=== PATIENT | female | born 1985 | race Caucasian/White ===

== ENCOUNTER 2020-09-14 09:59 | Emergency (ER) | payer SELFPAY ==
--- OUTSIDE RECORDS SUMMARY | 2020-09-14 10:05 | XMS REPORT | Clinical Summary ---
:1985 Author Organization [facility] Address [address] [place] [address] Care Team Providers Name Role Phone Asked, No Pcp Primary Care Provider Unavailable Allergies No Known Active Allergies Medications Medication Sig Dispensed Refills Start Date End Date Status promethazine Take 0.5 tablets 12 tablet 0 08/08/2017 Active (PHENERGAN) 25 MG (12.5 mg total) by tablet mouth every 6 (six) hours as needed for nausea or vomiting for up to 12 doses. 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 Family History Medical History Relation Name Comments Cancer Father Diabetes Father Hypertension Father Diabetes Mother Relation Name Status Comments Father Mother Social History Tobacco Use Types Packs/Day Years Used Date Never Smoker Smokeless Tobacco: Never Used Alcohol Use Drinks/Week oz/Week Comments Not Currently social Sex Assigned at Date Recorded Not on file Last Filed Vital Signs Vital Sign Reading Time Taken Comments Blood Pressure 107/59 10/28/2019 1:00 PM FIELD [facility]ISER Pulse 71 10/28/2019 1:00 PM [facility] Temperature 36.7 C (98.1 F) 10/28/2019 1:00 PM FI[facility] AP[facility]AISER Respiratory Rate 16 10/28/2019 1:00 PM [facility]AIS[facility] Oxygen Saturation 97% 10/28/2019 1:00 PM FIELD AP[facility]AISER Inhaled Oxygen Concentration - - Weight - - Height 154.9 cm (5' 1") 10/28/2019 10:36 AM FIELD AP[facility]AIS[facility] Body Mass Index - - Plan of Treatment Health Maintenance Due Date Last Done Comments CERVICAL CANCER SCREENING 2005 INFLUENZA VACCINE 06/09/2020 Procedures Procedure Name Priority Date/Time Associated Comments Diagnosis SPLINT APPLICATION Routine 10/28/2019 1:15 PM Re sults for this FIELD APPRAISER procedure are i n the results section. XR ANKLE 3+ VW LEFT STAT 10/28/2019 11:57 AM R esults for this FIELD APPRAISER procedure are i n the results section. XR FOOT 3+ VW LEFT STAT 10/28/2019 11:22 AM Re sults for this FIELD APPRAISER procedure are i n the results section. after 09/14/2019 Results Splint Application (10/28/2019 1:15 PM FIELD APPRAISER) Narrative Performed At Hung Thorpe MD 10/29/2019 11:1 9 AM Splint Application Performed by: Yokasta Babb FNP Authorized by: Hung Thorpe MD Consent: Consent obtained: Verbal Consent given by: Patient Alternatives discussed: No treatmen t Pre-procedure details: Sensation: Normal Procedure details: Laterality: Left Location: Ankle Ankle: L ankle Splint type: Ankle stirrup Supplies: Elastic bandage Post-procedure details: Pain: Unchanged Sensation: Normal Patient tolerance of procedure: Thomas erated well, no immediate complications XR Ankle 3+ Vw Left (10/28/2019 11:57 AM FIELD APPRAISER) Specimen Narrative Performed At XR ANKLE 3 VW LEFT [facility] CLINICAL INDICATION: Ankle pain init ial exam COMPARISON: None. IMPRESSION: No fracture or dislocation the ankle is identified. Th e ankle mortise is maintained and symmetric. There is prominent soft tiss ue swelling superficial to the lateral malleolus as well as anteri bonny about the ankle. There is a chronic ossification n oted distal to the lateral malleolus tip, the finding uncha nged from foot radiographs of 05/27/2016 consistent with remote injury . A moderate plantar calcaneal spur is present. *[facility]-[id number] Procedure Note Hm Interface, Radiology Results Incoming - 10/28/2019 12:05 PM FIELD APPRAISER XR ANKLE 3 VW LEFT CLINICAL INDICATION: Ankle pain initia l exam COMPARISON: None. IMPRESSION: No fracture or dislocation the ankle is identified. The ankle mortise is maintained and symmetric. There is prominent soft tissue swelling superficial to the lateral malleolus as well as anteriorly about the ankle. There is a chronic ossification n oted distal to the lateral malleolus tip, the finding unchanged from foot radiographs of 05/27/2016 consistent with remote injury. A moderate plantar calcaneal spur is present. *[facility]-[id number] Performing Organization Address City/[facility]/ZIP Code Phon e Number [facility] [address] [place] [address] XR Foot 3+ Vw Left (10/28/2019 11:22 AM FIELD APPRAISER) Specimen Narrative Performed At XR FOOT 3 VW LEFT [facility] CLINICAL INDICATION: foot pain COMPARISON: None. IMPRESSION: No acute fracture of the foot is identified but there are healed deformities of the second and third metatarsal mid sha fts. Prominent soft tissue swelling is present over the dorsal midfoo t. A flexion deformity is noted involving the fourth digit. *[facility]-[id number] Procedure Note Hm Interface, Radiology Results Incoming - 10/28/2019 11:54 AM FIELD APPRAISER XR FOOT 3 VW LEFT CLINICAL INDICATION: foot pain COMPARISON: None. IMPRESSION: No acute fracture of the foot is identif ied but there are healed deformities of the second and third metatarsal mid shafts. Prominent soft tissue swelling is present over the dorsal midfoot. A flexion deformity is noted involving the fourth digit. 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
--- OUTSIDE RECORDS SUMMARY | 2020-09-14 10:06 | XMS REPORT | Continuity of Care Document ---
:1985 Author Organization [facility] t Address [address] [place] [address] Care Team Providers Name Role Phone Asked, Pcp Primary Care Physician Unavailable SHABBIR Attending Clinician Unavailable Leah Attending Clinician Yola Adan MD Attending Clinician Julio César Thorpe MD Attending Clinician Geovani Arreaga Attending Clinician Rian Archuleta Attending Clinician Problems Condition Condition Condition Status Onset Resolution Last Treating Co mments Source Name Details Category Date Date Treatment Clinician Date LEFT ANKLE Diagnosis Active 2018-112019-10-26 Memoria PAIN/SWELL 2-17 00:21:00 l ING LEFT 00:00: Turner ANKLE 00 PAIN/SWELL ING Active 10/25/2019 [facility] Cellulitis Cellulitis Disease Active [place] of right of right 704 Method i lower lower 00:00: st extremity extremity 00 DOG BITE Diagnosis Active 2019-05-10 M emoria 7- 02:58:00 l DOG BITE 00:00: Candelario n 00 Active 05/10/2019 [facility] Arthralgia Arthralgia Problem Active U nivers of left of left ity of ankle ankle [place] [facility] Charcot-Ma Problem Active 2020-01-12 M emoria pako-Tooth 01:07:51 l disease, [place] type IA Charcot-Ma (disorder) pako-Tooth disease, type IA (disorder) Active Problem 01/12/2020 [facility], [facility] Cecile Sprain of Problem Active 2020-01-12 Me moria ankle 01:07:51 l (disorder) Sprain Herm mathieu of ankle (disorder) Active Problem 01/12/2020 Medical Group,[facility] [place],[facility] OPID Cecile Sprain of Problem Active 2020-01-12 Me moria ankle 01:07:51 l grade III Sprain Saima nn (disorder) of ankle grade III (disorder) Active Problem 01/12/2020 Medical Group Anxiety Problem Active 2020-01-12 Derrick ihsan (finding) 01:07:51 l Anxiety [place] (finding) Active Problem 01/12/2020 Medical [facility] Sprain of Problem 2018-2019-10-28 2019-10-28 Memoria unspecifie 2-18 22:04:28 22:04:28 l d ligament Sprain 18:00: Herm mathieu of left of 00 ankle, unspecifie initial d ligament encounter of left ankle, initial encounter 10/26/2019 10/28/2019 [facility] [place] Bitten by Problem 2019-05-12 2019-05-12 Memoria dog, - 21:05:31 21:05:31 l initial Bitten 17:00: Turner encounter by dog, 00 initial encounter 05/10/2019 05/12/2019 [facility] Laceration Problem 2019-05-12 2019-05-12 Memoria without - 21:05:31 21:05:31 l foreign 17:00: [place] body, Laceration 00 unspecifie without d lower foreign leg, body, initial unspecifie encounter d lower leg, initial encounter 05/10/2019 05/12/2019 [facility] Contusion Problem 2019-05-12 2019-05-12 Memoria of - 21:05:31 21:05:31 l unspecifie 17:00: Candelario n d lower Contusion 00 leg, of initial unspecifie encounter d lower leg, initial encounter 05/10/2019 05/12/2019 [facility] Allergies, Adverse Reactions, Alerts This patient has no known allergies or adverse reactions. Family History Family Member Diagnosis Comments Start Date Stop Date Source Natural father Cancer [place] [facility] Natural father Diabetes [place] [facility] Natural father Hypertension [place] Natural mother Diabetes [facility] thodist Social History Social Habit Start Date Stop Date Quantity Comments Source Sex Assigned At [facility] ethodist Social History 2019-11-17 2019-11-17 [facility] Kimberly ermann 21:44:05 21:44:05 Tobacco use and 2019-05-12 2019-05-12 Never used Luis Maloney ethodist exposure 00:00:00 00:00:00 Alcohol intake 2019-05-12 2019-05-12 Ex-drinker Luis Iverson thodist 00:00:00 00:00:00 (finding) Alcohol Comment 2018-02-20 2018-02-20 social Luis Maloney ethodist 00:00:00 00:00:00 Smoking Status Start Date Stop Date Source Never smoker Luis tuttle Social History 2019-05-10 07:11:20 [facility] Medications Ordered Filled Start Stop Current Ordering Indication Dosage Frequency Signature Comments Components Source Medication Medication Date Date Medication? Clinician (SIG) Name Name traMADol traMADol Yes AKSHAT TAKE 1 [facility] HCl - 50 MG HCl - 50 MG 3-03 SHABBIR TABLET ity of Oral Tablet Oral Tablet 00:00: M.D. EVERY 4 TO 00 6 HOURS Physici NEEDED. ans {6 Yes See Memoria (Azithromyc 3-02 Instructio l in 250 MG 20:02: ns, Take 2 He rmann Oral Tablet 00 tablets by [Zithromax] mouth the ) } Pack first day [Z-PAKS] then 1 tablet by mouth days 2-5., X 5 day, # 6 tab, 0 Refill(s), Pharmacy: [id number] Codeine 2019-0 Yes 5 mL, PO, Memor ia Phosphate 2 3-02 Q6H, PRN l MG/ML / 19:51: cough, X 6 Herm mathieu Guaifenesin 00 day, # 120 20 MG/ML mL, 0 Oral Refill(s), Solution Pharmacy: [id number] 200 ACTUAT 2019-0 Yes 1-2 puff, Me moria Albuterol 3-02 INHALER, l 0.09 19:51: Q6H, PRN Turner MG/ACTUAT 00 wheezing, Metered coughing, Dose or Inhaler shortness [ProAir of breath, HFA] # 1 ea, 0 Refill(s), Pharmacy: [id number] Fluticasone 2020-0 Yes 1-2 spray, Memoria propionate 2-26 NASAL, l 0.05 16:10: Daily, PRN [place] MG/ACTUAT 00 Congestion Metered , in each Dose Nasal nostril, # [place] 16 gm, 0 [Flonase] Refill(s), Pharmacy: [facility] Theraflu 2020-0 Yes PO, Q6H, 0 Mem oria (pseudoephe 2-26 Refill(s) l drine) 15:31: Turner Daytime 00 Severe Cold traMADol traMADol Yes AKSHAT TAKE 1 Univers HCl - 50 MG HCl - 50 MG 2-07 SHABBIR TABLET ity of Oral Tablet Oral Tablet 00:00: M.D. EVERY 4 TO [place] 00 6 HOURS Physici NEEDED. ans tramadol Yes 50 mg = 1 Derrick ihsan hydrochlori 1-20 tab, PO, l de 50 MG 22:15: Q8H, PRN Saima nn Oral Tablet 00 Pain, X 10 day, # 30 tab, 0 Refill(s), Pharmacy: [facility] naproxen Yes 500 mg = 1 Mem oria 500 mg oral 1-09 tab, PO, l tablet 23:18: BID, PRN Turner 00 Pain, X 15 day, # 30 tab, 0 Refill(s), Pharmacy: [facility] Ibuprofen No 200 mg, Memor ia 1-09 PO, BID, l 21:41: Takes 4 at [place] 00 a time, 0 Refill(s) tramadol 2018-11 Yes 50 mg = 1 Derrick ihsan hydrochlori 2-18 tab, PO, l de 50 MG 07:52: Q6H, X 15 Herm mathieu Oral Tablet 00 day, # 18 [Ultram] tab, 0 Refill(s) Motrin 600 2018-11 No 600 mg = 1 M emoria mg oral 2-18 tab, PO, l tablet 07:51: Q6H, take Candelario n 00 with food, # 30 tab, 0 Refill(s) Morphine 2018-11 No Notes: Memoria 2-18 (Same l 05:48: as:MORPhin Turner 00 e Sulfate) Ondansetron 2018-11 No Notes: Derrick ihsan 2-18 (Same as: l 05:48: Zofran) [place] MEDICATION WASTE Product Size: 4 mg Product Wasted: ___ mg Amoxicillin Yes 875 mg = 1 Memoria 875 MG / 05-10 tab, PO, l Clavulanate 08:42: BID, X 10 H ermann 125 MG Oral 00 day, # 20 Tablet tab, 0 [Augmentin Refill(s) 875-mg] tramadol Yes 50 mg = 1 Derrick ihsan hydrochlori 02 tab, PO, l de 50 MG 08:42: Q6H, PRN Saima nn Oral Tablet 00 Pain, X 3 day, # 10 tab, 0 Refill(s) ibuprofen Yes 600 mg, Memor ia 600 mg oral 05-10 PO, Q8H, l tablet 08:42: PRN Pain, Candelario n 00 Take with food, X 3 day, # 10 tab, 0 Refill(s) Famotidine Yes 20 mg = 1 Me moria 20 MG Oral 05-10 tab, PO, l Tablet 08:42: BID, # 14 Candelario n [Pepcid] 00 tab, 0 Refill(s) BD Normal No Notes: Memori a Saline 05-10 (Same as: l Flush 07:11: BD Turner Posiflush) BD Normal No Notes: Memori a Saline 05-10 (Same as: l Flush 07:10: BD [place] 00 Posiflush) Amoxicillin No 875 mg, Mem oria 875 MG / 05-10 Route: PO, l Clavulanate 07:01: Drug Form: [place] 125 MG Oral 00 TAB, Tablet Dosing [Augmentin Weight 875-mg] 54.545, kg, ONCE, Start date: 05/10/19 2:01:00 CDT, Stop date: 05/10/19 2:01:00 CDT, 0 Ibuprofen No 600 mg, Memor ia 05-10 Route: PO, l 06:54: ONCE, [place] 00 Dosing Weight 54.545, kg, Priority: STAT, Start date: 05/10/19 1:54:00 CDT, Stop date: 05/10/19 1:54:00 CDT Famotidine 2019-0 No 1 tab, Memor ia 20 MG Oral 05-10 Route: PO, l Tablet 06:54: ONCE, [place] [Pepcid] 00 Dosing Weight 54.545, kg, Start date: 05/10/19 1:54:00 CDT, Stop date: 05/10/19 1:54:00 CDT acetaminoph 2019-0 No 1 tab, Derrick ihsan en-codeine 05-10 Route: PO, l #3 06:54: Dosing Turner 00 Weight 54.545, kg, ONCE, STAT, Start date: 05/10/19 1:54:00 CDT, Stop date: 05/10/19 1:54:00 CDT promethazin 2017-0 Yes 12.5mg Q6H Take 0.5 Smith e 9-30 tablets Methodi (PHENERGAN) 00:00: (12.[address] 25 MG 00 total) by tablet mouth every 6 (six) hours as needed for nausea or vomiting for up to 12 doses. Vital Signs Vital Name Observation Time Observation Value Comments Source Systolic (mm Hg) 2020-01-09 19:09:00 Derrick rial [place] Diastolic (mm Hg) 2020-01-09 19:09:00 Mem orial [place] Heart Rate 2020-01-09 19:09:00 [facility] Temperature Oral (F) 2020-01-09 19:09:00 98.8 F [facility] [place] Height 2020-01-09 19:09:00 154.94 cm [facility] Weight 2020-01-09 19:09:00 [facility] BMI Calculated 2020-01-09 19:09:00 Memori al [place] Systolic (mm Hg) 2020-01-04 15:21:00 Derrick rial [place] Diastolic (mm Hg) 2020-01-04 15:21:00 Mem orial [place] Heart Rate 2020-01-04 15:21:00 [facility] Temperature Oral (F) 2020-01-04 15:21:00 98.9 F [facility] Height 2020-01-04 15:21:00 154.94 cm [facility] Weight 2020-01-04 15:21:00 [facility] BMI Calculated 2020-01-04 15:21:00 Memori al [place] Systolic (mm Hg) 2019-11-17 21:26:00 Derrick rial [place] Diastolic (mm Hg) 2019-11-17 21:26:00 Mem orial [place] Heart Rate 2019-11-17 21:26:00 [facility] [place] Temperature Oral (F) 2019-11-17 21:26:00 98.4 F [facility] [place] Height 2019-11-17 21:26:00 154.94 cm [facility] [place] Weight 2019-11-17 21:26:00 [facility] [place] BMI Calculated 2019-11-17 21:26:00 Memori al [place] Systolic blood 2019-10-28 13:00:00 107 mm[Hg] [place] pressure Diastolic blood 2019-10-28 13:00:00 59 mm[Hg] [place] pressure Heart rate 2019-10-28 13:00:00 71 /min [place] Body temperature 2019-10-28 13:00:00 36.72 [place] Respiratory rate 2019-10-28 13:00:00 16 /min [place] Oxygen saturation in 2019-10-28 13:00:00 97 /min [place] [facility] Arterial blood by Pulse oximetry Body height 2019-10-28 10:36:00 154.9 cm [place] [facility] Temperature Oral (F) 2019-10-26 08:11:00 98.1 F [facility] [place] Heart Rate 2019-10-26 08:11:00 [facility] [place] Respitory Rate 2019-10-26 08:11:00 Memori al [place] Systolic (mm Hg) 2019-10-26 08:11:00 Derrick rial Turner Diastolic (mm Hg) 2019-10-26 08:11:00 Mem orial [place] Systolic (mm Hg) 2019-10-26 05:32:00 Derrick rial [place] Diastolic (mm Hg) 2019-10-26 05:32:00 Mem orial Turner Heart Rate 2019-10-26 05:32:00 [facility] [place] Respitory Rate 2019-10-26 05:32:00 Memori al [place] Temperature Oral (F) 2019-10-26 05:32:00 97.7 F [facility] [place] Height 2019-10-26 05:32:00 154.94 cm [facility] [place] BMI Calculated 2019-10-26 05:32:00 Memori al [place] Weight 2019-10-26 05:32:00 [facility] [place] Temperature Oral (F) 2019-05-10 08:58:00 97.9 F [facility] [place] Heart Rate 2019-05-10 08:58:00 [facility] [place] Respitory Rate 2019-05-10 08:58:00 Memori al [place] Systolic (mm Hg) 2019-05-10 08:58:00 Derrick rial [place] Diastolic (mm Hg) 2019-05-10 08:58:00 Mem orial [place] Temperature Oral (F) 2019-05-10 08:30:00 97.9 F [facility] [place] Heart Rate 2019-05-10 08:30:00 [facility] [place] Respitory Rate 2019-05-10 08:30:00 Memori al [place] Systolic (mm Hg) 2019-05-10 08:30:00 Derrick rial [place] Diastolic (mm Hg) 2019-05-10 08:30:00 Mem orial [place] Temperature Oral (F) 2019-05-10 07:32:00 97.8 F [facility] [place] Heart Rate 2019-05-10 07:32:00 [facility] [place] Respitory Rate 2019-05-10 07:32:00 Memori al [place] Systolic (mm Hg) 2019-05-10 07:32:00 Derrick rial [place] Diastolic (mm Hg) 2019-05-10 07:32:00 Mem orial [place] Weight 2019-05-10 06:38:00 [facility] Turner BMI Calculated 2019-05-10 06:38:00 Memori al [place] Height 2019-05-10 06:38:00 154.94 cm [facility] Procedures Procedure Date / Time Performing Clinician Source Performed Removal impacted cerumen 2020-01-09 19:55:00 Mem orial [place] using irrigation/lavage, unilateral [U] XRAY ANKLE MIN 3 VWS 2019-12-14 00:00:00 [facility] LEFT [id number] Physicians Strapping; ankle and/or 2019-11-17 21:30:00 Derrick rial Turner foot SPLINT APPLICATION 2019-10-28 13:15:00 Yokasta Babb Bahai XR ANKLE 3+ VW LEFT 2019-10-28 11:57:15 Yokasta Babb [place]ai XR FOOT 3+ VW LEFT 2019-10-28 11:22:54 Yokasta Babb Bahai Cholecystectomy 2012-11-08 06:00:00 [facility] Her rodarte Appendectomy 2008-11-08 06:00:00 [facility] Her rodarte Excision of fallopian tube 2008-11-08 06:00:00 [facility] [place] and surgical removal of ectopic Reconstruction of anterior 2007-04-09 05:00:00 M emoriheidy Cochran cruciate ligament of knee joint Periacetabular osteotomy 1999-11-08 06:00:00 Mem orial [place] of pelvic bone Plan of Care Planned Activity Planned Date Details Comments Source Future Scheduled 2020-06-09 INFLUENZA VACCINE [place] Test 00:00:00 [code = INFLUENZA VACCINE] Future Scheduled 2005 Screening for [place] [facility] Test 00:00:00 malignant neoplasm of cervix (procedure) [code = 369144364] Encounters Start End Encounter Admission Attending Care Care Encounter Source Date/Time Date/Time Type Type Clinicians Facility Department ID 2020-01-09 2020-01-09 Outpatient [facility] [id number] 13:15:00 23:59:59 04 2020-01-06 2020-01-06 JACINTA Dorman [facility] [id number] Univers 16:00:00 16:00:00 t; mary jane ODEN M.D. [place] Thomas ODEN M.D. ans 2020-01-04 2020-01-04 Outpatient [facility] [id number] 09:15:00 23:59:59 03 2020-01-04 2020-01-04 Outpatient [facility] [id number] 10:15:00 10:15:00 02 2019-12-21 2019-12-21 Outpatient [facility] [id number] 15:00:00 15:00:00 01 2019-12-16 2019-12-16 JACINTA Dorman [facility] 6 [id number] Univers 13:30:00 13:30:00 t; Henrry ODEN M.D. [place] Thomas ODEN M.D. ans 2019-11-29 2019-11-30 Outpatient [facility] [id number] 13:05:32 23:59:59 00 2019-11-28 2019-11-29 Outpatient [facility] [id number] 13:09:25 13:09:25 05 2019-11-26 2019-11-26 Outpatient [place], [id number]. [id number]. [id number] 15:26:00 23:59:00 Noor [id number] [id number] 2019-11-17 2019-11-17 Outpatient [facility] [id number] 15:30:00 23:59:59 00 2019-10-25 2019-10-26 Outpatient [place], [id number]. [id number]. [id number] 23:19:50 02:17:00 Pipo [id number] Geovani [id number] 5.120 2019-10-25 2019-10-25 Emergency E MHCY MHCY 7503 MHCY 23:19:00 23:19:00 2019-05-10 2019-05-10 Outpatient Kathe [id number] [id number]. [id number] 01:34:56 04:20:00 , Lui [id number] Rian [id number] 5.9 2019-05-10 2019-05-10 Emergency E [facility] MH[facility] [id number] Memoria 01:34:00 01:34:00 l [place] Martinez l Results Test Description Test Test Results Result Source Time Comments Comments Splint Hung Thorpe MD [place] Application 20 10/29/2019 11:[address] 13:15:00 AMSplint ApplicationPerformed by: Yokasta Babb FNPAuthorized by: Hung Thorpe MD Consent: Consent obtained: Verbal Consent given by: Patient Alternatives discussed: No treatmentPre-procedure details: Sensation: NormalProcedure details: Laterality: Left Location: Ankle Ankle: L ankle Splint type: Ankle stirrup Supplies: Elastic bandagePost-procedure details: Pain: Unchanged Sensation: Normal Patient tolerance of procedure: Tolerated well, no immediate complications XR Ankle 3+ Vw 2019-10[facility] Interface, Radiology [place] Left 20 Results Incoming - Method ist 12:02:13 10/28/2019 12:05 PM CSTXR ANKLE 3 VW LEFTCLINICAL INDICATION: Ankle pain initial examCOMPARISON: None.IMPRESSION:No fracture or dislocation the ankle is identified. The ankle mortise is maintained and symmetric. There is prominent soft tissue swelling superficial to the lateral malleolus as well as anteriorly about the ankle. There is a chronic ossification noted distal to the lateral malleolus tip, the finding unchanged from foot radiographs of 05/27/2016 consistent with remote injury. A moderate plantar calcaneal spur is present.*[id number] [id number] Foot 3+ Vw 2019-10- Interface, Radiology [place] Left 20 Results Incoming - Method ist 11:51:42 10/28/2019 11:54 AM CSTXR FOOT 3 VW LEFTCLINICAL INDICATION: foot painCOMPARISON: None.IMPRESSION:No acute fracture of the foot is identified but there are healed deformities of the second and third metatarsal mid shafts. Prominent soft tissue swelling is present over the dorsal midfoot. A flexion deformity is noted involving the fourth digit.*[id number]
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
[2020-09-14] MEDS ORDERED: HYDROCODONE/APAP 10/325 TAB ONE (10:46)
--- NOTE | 2020-09-14 11:17 | RAD REPORT ---
EXAM DESCRIPTION: RAD - Knee Left 3 View - 09/14/2020 11:11 am CLINICAL HISTORY: knee pain Left knee pain and swelling COMPARISON: No comparisons FINDINGS: Mild medial compartment space arthritic changes are present. A small suprapatellar joint e ffusion. No fracture or dislocation.
--- NOTE | 2020-09-14 11:47 | ER ---
Nurse's Notes [facility] Name: Gissell White Age: 34 yrs Sex: Female : 1985 Arrival Date: 09/14/2020 Time: 10:03 Bed 7 Private MD: Diagnosis: Unspecified dislocation of left patella Presentation: 09/14 10:15 Chief complaint: Left knee gave out while standing in kitchen this morning, c/o left hb knee pain 05/18. Coronavirus screen: At this time, the client does not indicate any symptoms associated with coronavirus-19. Ebola Screen: No symptoms or risks identified at this time. Initial Sepsis Screen: Does the patient meet any 2 criteria? No. Patient's initial sepsis screen is negative. Does the patient have a suspected source of infection? No. Patient's initial sepsis screen is negative. Risk Assessment: Do you want to hurt yourself or someone else? Patient reports no desire to harm self or others. Onset of symptoms was September 14, 2020. 10:15 Method Of Arrival: Carried 10:15 Acuity: JOCELYNE 4 hb Triage Assessment: 10:16 General: Appears in no apparent distress. uncomfortable, Behavior is calm, cooperative. hb Pain: Pain currently is 7 out of 10 on a pain scale. EENT: No signs and/or symptoms were reported regarding the EENT system. Neuro: Level of Consciousness is awake, alert, obeys commands, Oriented to person, place, time, situation. Cardiovascular: Capillary refill < 3 seconds Patient's skin is warm and dry. Respiratory: Respiratory effort is even, unlabored, Respiratory pattern is regular, symmetrical. GI: No signs and/or symptoms were reported involving the gastrointestinal system. : No signs and/or symptoms were reported regarding the genitourinary system. Derm: Skin is pink, warm \T\ dry. Musculoskeletal: mild swelling noted to left knee. Historical: - Allergies: 10:16 No Known Allergies; hb - Immunization history:: Adult Immunizations up to date. - Social history:: Smoking status: Patient denies any tobacco usage or history of. Screenin:17 Abuse screen: Denies threats or abuse. Denies injuries from another. Nutritional hb screening: No deficits noted. Tuberculosis screening: No symptoms or risk factors identified. Fall Risk None identified. Assessment: 10:17 General: see triage. hb 11:00 Reassessment: Patient appears in no apparent distress at this time. Patient and/or hb family updated on plan of care and expected duration. Pain level reassessed. Patient is alert, oriented x 3, equal unlabored respirations, skin warm/dry/pink. 11:45 Reassessment: Patient appears in no apparent distress at this time. Patient and/or hb family updated on plan of care and expected duration. Pain level reassessed. Patient is alert, oriented x 3, equal unlabored respirations, skin warm/dry/pink. Vital Signs: 10:15 BP 102 / 77; Pulse 79; Resp 16; Temp 98.1(O); Pulse Ox 98% ; Pain 7/10; hb 11:30 BP 112 / 78; Pulse 78; Resp 16; Pulse Ox 99% on R/A; hb ED Course: 10:03 Patient arrived in ED. mr 10:08 Yohannes Melchor PA is PHCP. [facility] 10:08 Thuan Mendoza MD is Attending Physician. [facility] 10:16 Triage completed. hb 10:16 Janki Churchill, RN is Primary Nurse. hb 10:16 Arm band placed on. hb 10:17 Patient has correct armband on for positive identification. Call light in reach. Side hb rails up X 1. 11:11 Knee Left 3 View XRAY In Process Unspecified. EDMS 11:44 Ben Patrick MD is Referral Physician. [facility] 11:56 No provider procedures requiring assistance completed. Patient did not have IV access hb during this emergency room visit. 11:57 Knee immobilizer applied on left knee. dh3 Administered Medications: 10:38 Drug: Flora 10 mg-325 mg 1 tabs Route: PO; hb 11:35 Follow up: Response: No adverse reaction hb Outcome: 11:46 Discharge ordered by MD. m 11:56 Discharged to home with family. hb 11:56 Condition: stable 11:56 Discharge instructions given to patient, Instructed on discharge instructions, follow up and referral plans. Demonstrated understanding of instructions, follow-up care, medications, Prescriptions given X 1. 12:00 Patient left the ED. hb Signatures: Dispatcher [employer] EDMS Yohannes Melchor PA PA Apryl Reinoso mr Janki Churchill, RN RN hb Rain, Magalys dh3
--- NOTE | 2020-09-14 11:48 | EDPHYS ---
Physician Documentation [facility] Name: Gissell White Age: 34 yrs Sex: Female : 1985 Arrival Date: 09/14/2020 Time: 10:03 Bed 7 Private MD: ED Physician Thuan Mendoza HPI: 09/14 10:21 This 34 yrs old Female presents to ER via Carried with complaints of Knee jmm Pain. 10:21 The patient presents with an injury, pain. Onset: The symptoms/episode began/occurred jmm acutely, just prior to arrival. Modifying factors: The symptoms are alleviated by nothing. the symptoms are aggravated by movement, weight bearing, bending knee. This is a 34 year old female with a history of Akxfify-Laquj-Qgraj that presents to the ED with spontaneous dislocation of the left patella while the patient was standing. Patient states she collapsed immediately. Patient states she had a similar episode 1 month prior. Denies other injury. . Historical: - Allergies: 10:16 No Known Allergies; hb - Immunization history:: Adult Immunizations up to date. - Social history:: Smoking status: Patient denies any tobacco usage or history of. ROS: 10:21 Constitutional: Negative for fever, chills, and weight loss, Cardiovascular: Negative jmm for chest pain, palpitations, and edema, Respiratory: Negative for shortness of breath, cough, wheezing, and pleuritic chest pain. 10:21 MS/extremity: Positive for pain. 10:21 All other systems are negative. Exam: 10:21 Constitutional: This is a well developed, well nourished patient who is awake, alert, jmm and in no acute distress. Head/Face: atraumatic. Eyes: EOMI, no conjunctival erythema appreciated ENT: Moist Mucus Membranes Neck: Trachea midline, Supple Chest/axilla: Normal chest wall appearance and motion. Cardiovascular: Regular rate and rhythm. No edema appreciated Respiratory: Normal respirations, no respiratory distress appreciated Abdomen/GI: Non distended, soft Back: Normal ROM Skin: General appearance color normal 10:21 Musculoskeletal/extremity: left patella is TTP, no tibial or femoral ttp, full dorsalis pulse appreciated, compartments are soft, NVI. 10:21 Skin: Appearance: Color: normal in color. 10:21 Neuro: Orientation: is normal, Mentation: is normal, Memory: is normal. 10:21 Psych: Behavior/mood is pleasant, cooperative. Vital Signs: 10:15 BP 102 / 77; Pulse 79; Resp 16; Temp 98.1(O); Pulse Ox 98% ; Pain 7/10; hb 11:30 BP 112 / 78; Pulse 78; Resp 16; Pulse Ox 99% on R/A; hb MDM: 10:21 Patient medically screened. [facility] 11:42 Data reviewed: vital signs, nurses notes. Counseling: I had a detailed discussion with [facility] the patient and/or guardian regarding: the historical points, exam findings, and any diagnostic results supporting the discharge/admit diagnosis, the need for outpatient follow up, to return to the emergency department if symptoms worsen or persist or if there are any questions or concerns that arise at home. ED course: Xray negative for fracture. Most likely patellar dislocation. I do not suspect knee dislocation/vascular involvement. Low likelihood based on mechanism. Patient is advised to follow up with ortho for reevaluation and otherwise given strict return precautions. Patient understood and agrees with the plan of care. . 09/14 10:24 Order name: Knee Left 3 View XRAY; Complete Time: 11:23 [facility] 09/14 11:23 Order name: Knee Immobilizer; Complete Time: 11:56 [facility] Administered Medications: 10:38 Drug: [place] 10 mg-325 mg 1 tabs Route: PO; hb 11:35 Follow up: Response: No adverse reaction hb Disposition: 09/14/20 11:46 Discharged to Home. Impression: Unspecified dislocation of left patella. - Condition is Stable. - Discharge Instructions: Patellar Dislocation. - Prescriptions for Ultracet 37.5- 325 mg Oral Tablet - take 1 tablet by ORAL route every 6 hours - for up to 5 days; do not exceed 8 tablets per day.; 20 tablet. - Medication Reconciliation Form, Thank You Letter, Antibiotic Education, Prescription Opioid Use form. - Follow up: Ben Patrick MD; When: 2 - 3 days; Reason: Recheck today's complaints, Continuance of care, Re-evaluation by your physician. Addendum: 09/16/2020 18:41 Co-signature as Attending Physician, Thuan Mendoza MD I agree with the assessment and k plan of care. Signatures: Dispatcher MedThuan Alejo MD MD kdr Mickail, Joel, PA PA Janki Cueva, RN RN Corrections: (The following items were deleted from the chart) 09/14 12:00 11:46 09/14/2020 11:46 Discharged to Home. Impression: Unspecified dislocation of left hb patella. Condition is Stable. Forms are Medication Reconciliation Form, Thank You Letter, Antibiotic Education, Prescription Opioid Use. Follow up: Ben Patrick; When: 2 - 3 days; Reason: Recheck today's complaints, Continuance of care, Re-evaluation by your physician. adela
[2020-09-14 12:05] VITALS: TEMP 98.1
[2020-09-14 12:06] VITALS: BP 112/78; O2SAT 99
== END 2020-09-14 12:00 | disposition home or self-care (01) ==
LOC: ER 09:59
DX: S83.005A Unspecified dislocation of left patella, initial encounter (principal)
CPT/HCPCS: 99284

== ENCOUNTER 2021-07-12 14:25 | Emergency (ER) | payer OTHER, SELFPAY ==
--- OUTSIDE RECORDS SUMMARY | 2021-07-12 14:31 | XMS REPORT | Continuity of Care Document ---
:1985 Author Organization [facility] t Address [address] [place] [address] Care Team Providers Name Role Phone Pcp, Does Not Have A Primary Care Physician MILADIS Attending Clinician Unavailable Ben PARDO Attending Clinician Doctor Unassigned, Name Attending Clinician Unavailable Ultrasound Attending Clinician Unavailable Kavya PARDO, Ori Attending Clinician Skip RN, S Attending Clinician Unavailable Danish PARDO Attending Clinician 2, Lab Attending Clinician Unavailable Pob, Lab Main Attending Clinician Unavailable Karina HDEZ, M Attending Clinician Unavailable Oswald Ibarra DO Attending Clinician Erick HDEZ, T Attending Clinician Unavailable SHABBIR Attending Clinician Unavailable Leah Attending Clinician Geovani Arreaga Attending Clinician Rian Archuleta Attending Clinician Payers Payer Name Policy Type Policy Number Effective Date Expiration Date Lin shook [facility] MEDICAID STAR [id number] 2020 00:00:00 Problems Condition Condition Condition Status Onset Resolution Last Treating Co mments Source Name Details Category Date Date Treatment Clinician Date COVID-19 COVID-19 Disease Active Unive rs affecting affecting 07-11 [place]y [place] , , [place] antepartum antepartum 00 Me dical Branch Supervisio Supervisio Disease Active U nivers n of n of 9-02 ity of elderly elderly 00:00: [place] multigravi multigravi 00 Me dical da in da in Branch third third trimester trimester Obesity Obesity Disease Active Univers (BMI (BMI 8-18 ity of 30-39.9) 30-39.9) 00:00: [place] 00 Medical Branch Insulin Insulin Disease Active Univers controlled controlled 8-05 it y of gestationa gestationa 00:[place] l diabetes l diabetes 00 Me dical mellitus mellitus Branch (GDM) (GDM) during during , , antepartum antepartum Anxiety Anxiety Disease Active Univers 7-20 ity of 00:00: [place] Medical Branch Anemia of Anemia of Disease Active Uni vers mother in mother in 7-05 ity of , , 00:[place] antepartum antepartum 00 Me dical Branch 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 00:00: [place] te te 00 Medical 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 Chronic Chronic Disease Active Univers pain of pain of 4-26 ity of both knees both knees 00:00: [place] 00 [place] Vulvar Vulvar Disease Active Univers lesion lesion 4-09 ity of 00:00: [place] 00 Medical Branch Vaginal Vaginal Disease Active Univers discharge discharge 4-09 ity of during during 00:00: [place] 00 Medi luis miguel in second in second Bran ch trimester trimester Non-intrac Non-intrac Disease Active U nivers table table 3-12 ity of vomiting vomiting 00:00: [place] with with 00 Medical nausea nausea Branch 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-11 ity of disease disease 00:00: [place] type 1A type 1A 00 Medical Branch Depression Depression Disease Active U nivers affecting affecting 2-11 it[place] of [place] in third in third 00 Medica l trimester, trimester, Br anch antepartum antepartum Supervisio Supervisio Disease Active U nivers n of n of 2-11 ity of high-risk high-risk 00:[place] Med[place] luis miguel of elderly of elderly Br anch multigravi multigravi da da LEFT ANKLE Diagnosis Active [id number] Memoria PAIN/SWELL 12-26 00:21:00 l ING LEFT 00:00: [place] ANKLE 00 PAIN/SWELL ING Active 10/25/2019 [facility] Cellulitis Cellulitis Disease Active M ethodi of right of right [address] [facility] lower lower 00:00: [facility] extremity extremity 00 l DOG BITE Diagnosis Active 2019-05-10 M emoria 05-10 02:58:00 l DOG BITE 00:00: [place] 00 Active 05/10/2019 [facility] Chlamydia Chlamydia Disease Active 2017-11 Uni vers trachomati trachomati 0-26 it y of s s 00:00: [place] infection infection 00 Medi luis miguel of lower of lower Branch genitourin genitourin elvira sites elvira sites Sprain of Problem Active 2020-01-12 Me moria ankle 01:07:51 l (disorder) Sprain Herm mathieu of ankle (disorder) Active Problem 01/12/2020 [facility] H OPID Cecile Sprain of Problem Active 2020-01-12 Me mor[place] ankle 01:07:51 l grade III Sprain Saima nn (disorder) of ankle grade III (disorder) Active Problem 01/12/2020 [facility] Arthralgia Arthralgia Problem Active U nivers of left of left ity of ankle ankle [place] [facility]ici ans History of Past Illness Condition Condition Condition Status Onset Resolution Last Treating Co mments Source Name Details Category Date Date Treatment Clinician Date Sprain of Problem [id number] 2019-10-28 Memoria unspecifie 2-18 22:04:28 22:04:28 l d ligament Sprain 18:00: Herm mathieu of left of 00 ankle, unspecifie initial d ligament encounter of left ankle, initial encounter 10/26/2019 10/28/2019 [facility] Bitten by Problem 2019-05-12 2019-05-12 Memoria dog, 05-10 21:05:31 21:05:31 l initial Bitten 17:00: [place] encounter by dog, 00 initial encounter 05/10/2019 05/12/2019 [facility] Laceration Problem 2018-2019-05-12 2019-05-12 Memoria without 05-10 21:05:31 21:05:31 l foreign 17:00: [place] body, Laceration 00 unspecifie without d lower foreign leg, body, initial unspecifie encounter d lower leg, initial encounter 05/10/2019 05/12/2019 [facility] Contusion Problem 2018-2019-05-12 2019-05-12 Memoria of 05-10 21:05:31 21:05:31 l unspecifie 17:00: [place] d lower Contusion 00 leg, of initial unspecifie encounter d lower leg, initial encounter 05/10/2019 05/12/2019 [facility] Allergies, Adverse Reactions, Alerts This patient has no known allergies or adverse reactions. Family History Family Member Diagnosis Comments Start Date Stop Date Source Natural father Cancer [facility] [place] [facility] father Diabetes [facility] Natural father Hypertension [facility] Natural mother Diabetes [facility] Social History Social Habit Start Date Stop Date Quantity Comments Source ASSERTION 2020-11-08 University of 00:00:00 [place] [facility] Exposure to Yes University of SARS-CoV-2 [place] [facility] (event) Branch Social History 2019-11-17 2019-11-17 Darleen turner 21:44:05 21:44:05 Tobacco use and 2019-05-12 2019-05-12 Never used [facility] exposure 00:00:00 00:00:00 Alcohol intake 2019-05-12 2019-05-12 Ex-drinker [facility] 00:00:00 00:00:00 (finding) Alcohol Comment 2018-02-20 2018-02-20 [facility] 00:00:00 00:00:00 [birth year] [facility] 00:00:00 00:00:00 Smoking Status Start Date Stop Date Source Social History 2019-10-26 06:02:21 [facility] Her rodarte Never smoker [facility] Medications Ordered Filled Start Stop Current Ordering Indication Dosage Frequency Signature Comments Components Source Medication Medication Date Date Medication? Clinician (SIG) Name Name psyllium Yes Take by Salvador mcmahan 8 mouth. ity of (METAMUCIL 21:00: [place] ORAL) 11 Medical Branch Yes Take by Unive rs vit 8-28 mouth. ity of 75/iron/fol 21:00: [place] ic/om3 (ONE 11 Medical A DAY [place] [facility] ORAL) psyllium Yes Take by Unive rs husk 8-28 mouth. ity of (METAMUCIL 21:00: [place] ORAL) 11 Medical Branch acetaminoph Yes Take by Un waldo en 8-28 mouth. ity of (TYLENOL) 21:00: [place] 325 mg Cap 11 Medical Branch Yes Take by Unive rs vit 8-28 mouth. ity of 75/iron/fol 21:00: [place] ic/om3 (ONE 11 Medical A DAY [place] [facility]OM[facility] D[facility] ORAL) psyllium Yes Take by Unive rs husk 8-28 mouth. ity of (METAMUCIL 21:00: [place] ORAL) 11 Medical Branch acetaminoph Yes Take by Un waldo en 8- mouth. ity of (TYLENOL) 21:00: [place] 325 mg Cap 11 Medical Branch Yes Take by Unive rs vit 8-28 mouth. ity of 75/iron/fol 21:00: [place] ic/om3 (ONE 11 Medical A DAY [place] [facility]OM[facility] D[facility] ORAL) psyllium Yes Take by Unive rs husk 8-28 mouth. ity of (METAMUCIL 21:00: [place] ORAL) 11 Medical Branch acetaminoph Yes Take by Un waldo en 8-28 mouth. ity of (TYLENOL) 21:00: [place] 325 mg Cap 11 Medical Branch Yes Take by Unive rs vit 8-28 mouth. ity of 75/iron/fol 21:00: [place] ic/om3 (ONE 11 Medical A DAY [place] [facility]OM[facility] D[facility] ORAL) psyllium Yes Take by Unive rs husk 8-28 mouth. ity of (METAMUCIL 21:00: [place] ORAL) 11 Medical Branch acetaminoph Yes Take by Un waldo en 8-28 mouth. ity of (TYLENOL) 21:00: [place] 325 mg Cap 11 Medical Branch Yes Take by Unive rs vit 8-28 mouth. ity of 75/iron/fol 21:00: [place] ic/om3 (ONE 11 Medical A DAY Branch WOMEN'S D[facility] ORAL) albuterol Yes [id number] 2{puff} Inhale 2 Univers 90 8-28 Puffs ity of mcg/actuati 00:00: every 6 [place] as on inhaler 00 (six) Medical hours as Branch needed for Wheezing or Shortness of Breath. albuterol Yes [id number] 2{puff} Inhale 2 Univers 90 8-28 Puffs ity of mcg/actuati 00:00: every 6 [place] as on inhaler 00 (six) Medical hours as Branch needed for Wheezing or Shortness of Breath. albuterol Yes [id number] 2{puff} Inhale 2 Univers 90 8-28 Puffs ity of mcg/actuati 00:00: every 6 [place] as on inhaler 00 (six) Medical hours as Branch needed for Wheezing or Shortness of Breath. albuterol Yes [id number] 2{puff} Inhale 2 Univers 90 8-28 Puffs ity of mcg/actuati 00:00: every 6 [place] as on inhaler 00 (six) Medical hours as Branch needed for Wheezing or Shortness of Breath. insulin NPH Yes [id number] 12U inject 12 Univers (HUMULIN N 8-04 Units ity of NPH U-100 00:00: under the [place] as INSULIN) 00 skin every Medic al 100 unit/mL morning Branc h injection and evening. insulin NPH Yes [id number] 12U inject 12 Univers (HUMULIN N 8-04 Units ity of NPH U-100 00:00: under the [place] as INSULIN) 00 skin every Medic al 100 unit/mL morning Branc h injection and evening. insulin NPH Yes [id number] 12U inject 12 Univers (HUMULIN N 8-04 Units ity of NPH U-100 00:00: under the [place] as INSULIN) 00 skin every Medic al 100 unit/mL morning Branc h injection and evening. insulin NPH Yes [id number] 12U inject 12 Univers (HUMULIN N 8-04 Units ity of NPH U-100 00:00: under the [place] as INSULIN) 00 skin every Medic al 100 unit/mL morning Branc h injection and evening. insulin NPH 0 Yes [id number] 12U inject 12 Univers (HUMULIN N 8-04 Units ity of NPH U-100 00:00: under the [place] as INSULIN) 00 skin every Medic al 100 unit/mL morning Branc h injection and evening. Blood-Gluco Yes Use as Univ ers se Meter 7 directed ity of (FREESTYLE 00:00: [place] LITE METER) 00 Medical Kit Branch blood sugar Yes Pt to Unive rs diagnostic 06-03 check ity of (FREESTYLE 00:00: blood [place] LITE 00 glucose Medical STRIPS) levels 4 x Branch strip per day Lancets Yes Use as Univers Misc 7 directed ity of 00:00: [place] 00 Medical Branch Blood-Gluco Yes Use as Univ ers se Meter 06-03 directed ity of (FREESTYLE 00:00: [place] LITE METER) 00 Medical Kit Branch blood sugar Yes Pt to Unive rs diagnostic 06-03 check ity of (FREESTYLE 00:00: blood [place] LITE 00 glucose Medical STRIPS) levels 4 x Branch strip per day Lancets Yes Use as Univers Misc 06-03 directed ity of 00:00: [place] 00 Medical Branch Blood-Gluco Yes Use as Univ ers se Meter 06-03 directed ity of (FREESTYLE 00:00: [place] LITE METER) 00 Medical Kit Branch blood sugar Yes Pt to Unive rs diagnostic 06-03 check ity of (FREESTYLE 00:00: blood [place] LITE 00 glucose Medical STRIPS) levels 4 x Branch strip per day Lancets 0 Yes Use as Univers Misc 7 directed ity of 00:00: [place] 00 Medical Branch Blood-Gluco Yes Use as Univ ers se Meter 06-03 directed ity of (FREESTYLE 00:00: [place] LITE METER) 00 Medical Kit Branch blood sugar Yes Pt to Unive rs diagnostic 06-03 check ity of (FREESTYLE 00:00: blood [place] LITE 00 glucose Medical STRIPS) levels 4 x Branch strip per day Lancets Yes Use as Univers Misc 7 directed ity of 00:00: [place] 00 Medical Branch Blood-Gluco Yes Use as [facility] ers se Meter 06-03 directed ity of (FREESTYLE 00:00: [place] LITE METER) 00 Medical Kit Branch blood sugar Yes Pt to [facility] rs diagnostic 06-03 check ity of (FREESTYLE 00:00: blood [place] LITE 00 glucose Medical STRIPS) levels 4 x Branch strip per day Lancets Yes Use as [facility] Misc 06-03 directed ity of 00:00: [place] 00 Medical Branch ferrous Yes [id number] 325mg Take 1 Un waldo sulfate 6-28 tablet by ity of (IRON, 00:00: mouth [place] FERROUS 00 daily. Medical SULFATE,) Branch 325 mg (65 mg iron) tablet ascorbic Yes [id number] 500mg Take 1 U nivers acid, 6-28 tablet by ity of vitamin C, 00:00: mouth [place] 500 mg 00 daily. Medical tablet Branch docusate Yes [id number] 100mg Take 1 U nivers (COLACE) 6-28 capsule by ity o f 100 mg 00:00: mouth 2 [place] capsule 00 (two) Medical times Branch daily as needed for Constipati on. ferrous Yes [id number] 325mg Take 1 Un waldo sulfate 6-28 tablet by ity of (IRON, 00:00: mouth [place] FERROUS 00 daily. Medical SULFATE,) Branch 325 mg (65 mg iron) tablet ascorbic Yes [id number] 500mg Take 1 U nivers acid, 6-28 tablet by ity of vitamin C, 00:00: mouth [place] 500 mg 00 daily. Medical tablet Branch docusate Yes [id number] 100mg Take 1 U nivers (COLACE) 6-28 capsule by ity o f 100 mg 00:00: mouth 2 [place] capsule 00 (two) Medical times Branch daily as needed for Constipati on. ferrous Yes [id number] 325mg Take 1 Un waldo sulfate 6-28 tablet by ity of (IRON, 00:00: mouth [place] FERROUS 00 daily. Medical SULFATE,) Branch 325 mg (65 mg iron) tablet ascorbic Yes [id number] 500mg Take 1 U nivers acid, 6-28 tablet by ity of vitamin C, 00:00: mouth [place] 500 mg 00 daily. Medical tablet Branch docusate Yes [id number] 100mg Take 1 U nivers (COLACE) 6-28 capsule by ity o f 100 mg 00:00: mouth 2 [place] capsule 00 (two) Medical times Branch daily as needed for Constipati on. ferrous Yes [id number] 325mg Take 1 Un [place]do sulfate 6-28 tablet by ity of (IRON, 00:00: mouth [place] FERROUS 00 daily. Medical SULFATE,) Branch 325 mg (65 mg iron) tablet ascorbic Yes [id number] 500mg Take 1 U nivers acid, 6-28 tablet by ity of vitamin C, 00:00: mouth [place] 500 mg 00 daily. Medical tablet Branch docusate Yes [id number] 100mg Take 1 U nivers (COLACE) 6-28 capsule by ity o f 100 mg 00:00: mouth 2 [place] capsule 00 (two) Medical times Branch daily as needed for Constipati on. ferrous Yes [id number] 325mg Take 1 Un waldo sulfate 6-28 tablet by ity of (IRON, 00:00: mouth [place] FERROUS 00 daily. Medical SULFATE,) Branch 325 mg (65 mg iron) tablet ascorbic Yes [id number] 500mg Take 1 U nivers acid, 6-28 tablet by ity of vitamin C, 00:00: mouth [place] 500 mg 00 daily. Medical tablet Branch docusate Yes [id number] 100mg Take 1 U nivers (COLACE) 6-28 capsule by ity o f 100 mg 00:00: mouth 2 [place] capsule 00 (two) Medical times Branch daily as needed for Constipati on. venlafaxine Yes Depression, 37.5mg Take 1 Univers XR 37.5 mg 2-26 unspecified capsule by ity of 24 hr 00:00: depression mouth [place] capsule 00 type daily with Medica l breakfast. Branch ondansetron Yes Nausea 4mg Take 1 Un waldo (ZOFRAN) 4 2-26 tablet by ity of mg tablet 00:00: mouth [place] 00 every 8 Medical (eight) Branch hours as needed for Nausea and Vomiting (N/V). venlafaxine Yes [id number] 37.5mg Take 1 Univers XR 37.5 mg 2-26 capsule by ity of 24 hr 00:00: mouth [place] capsule 00 daily with Medica l breakfast. Branch venlafaxine Yes [id number] 37.5mg Take 1 Univers XR 37.5 mg 2-26 capsule by ity of 24 hr 00:00: mouth [place] capsule 00 daily with Medica l breakfast. Branch venlafaxine Yes [id number] 37.5mg Take 1 Univers XR 37.5 mg 2-26 capsule by ity of 24 hr 00:00: mouth [place] capsule 00 daily with Medica l breakfast. Branch venlafaxine Yes [id number] 37.5mg Take 1 Univers XR 37.5 mg 2-26 capsule by ity of 24 hr 00:00: mouth [place] capsule 00 daily with Medica l breakfast. [place] venlafaxine Yes [id number] 37.5mg Take 1 Univers XR 37.5 mg 2-26 capsule by ity of 24 hr 00:00: mouth [place] capsule 00 daily with Medica l breakfast. Branch Yes Take by Unive rs vit 1-14 mouth. ity of 75/iron/fol 16:11: [place] ic/om3 (ONE 46 Medical A DAY Branch WOMEN'S DHA ORAL) pyridoxine, Yes [id number] 25mg Take 1 Univers VITAMIN 1-14 tablet by ity of B-6, 25 mg 00:00: mouth 3 [place] tablet 00 (three) Medical times [place] daily. pyridoxine, Yes [id number] 25mg Take 1 Univers VITAMIN 1-14 tablet by ity of B-6, 25 mg 00:00: mouth 3 [place] tablet 00 (three) Medical times Branch daily. pyridoxine, Yes [id number] 25mg Take 1 Univers VITAMIN 1-14 tablet by ity of B-6, 25 mg 00:00: mouth 3 [place] tablet 00 (three) Medical times [place] daily. pyridoxine, Yes [id number] 25mg Take 1 Univers VITAMIN 1-14 tablet by ity of B-6, 25 mg 00:00: mouth 3 [place] tablet 00 (three) Medical times Branch daily. pyridoxine, Yes [id number] 25mg Take 1 Univers VITAMIN 1-14 tablet by ity of B-6, 25 mg 00:00: mouth 3 [place] tablet 00 (three) Medical times Branch daily. pyridoxine, Yes Nausea and 25mg Take 1 Univers VITAMIN 1-14 vomiting, tablet by it y of B-6, 25 mg 00:00: intractabil mouth 3 [place] tablet 00 ity of (three) Medical vomiting times Branch not daily. specified, unspecified vomiting type doxylamine Yes Nausea and 25mg Take 1 Univers 25 mg 1-14 vomiting, tablet by ity of tablet 00:00: intractabil mouth at [place] 00 ity of bedtime. Medical vomiting Branch not specified, unspecified vomiting type traMADol traMADol Yes AKSHAT TAKE 1 Univers HCl - 50 MG HCl - 50 MG 3-03 SHABBIR TABLET ity of Oral Tablet Oral Tablet 00:00: M.D. EVERY 4 TO [place] 00 6 HOURS Physici NEEDED. ans { Yes See Memoria (Azithromyc 3-02 Instructio l in 250 MG 20:02: ns, Take 2 He rmann Oral Tablet 00 tablets by [Zithromax] mouth the ) } Pack first day [Z-PAKS] then 1 tablet by mouth days 2-5., X 5 day, # 6 tab, 0 Refill(s), Pharmacy: [facility] { Yes See Memoria (Azithromyc 3-02 Instructio l in 250 MG 20:02: ns, Take 2 He r[place] Oral Tablet 00 tablets by [Zithromax] mouth the ) } Pack first day [Z-PAKS] then 1 tablet by mouth days 2-5., X 5 day, # 6 tab, 0 Refill(s), Pharmacy: [facility] { Yes See Memoria (Azithromyc 3-02 Instructio l in 250 MG 20:02: ns, Take 2 He r[place] Oral Tablet 00 tablets by [Zithromax] mouth the ) } Pack first day [Z-PAKS] then 1 tablet by mouth days 2-5., X 5 day, # 6 tab, 0 Refill(s), Pharmacy: [facility] { Yes See Memoria (Azithromyc 3-02 Instructio l in 250 MG 20:02: ns, Take 2 He rmann Oral Tablet 00 tablets by [Zithromax] mouth the ) } Pack first day [Z-PAKS] then 1 tablet by mouth days 2-5., X 5 day, # 6 tab, 0 Refill(s), Pharmacy: [facility] {6 2019- Yes See Memoria (Azithromyc 3-02 Instructio l in 250 MG 20:02: ns, Take 2 He rmann Oral Tablet 00 tablets by [Zithromax] mouth the ) } Pack first day [Z-PAKS] then 1 tablet by mouth days 2-5., X 5 day, # 6 tab, 0 Refill(s), Pharmacy: [facility] {6 2019- Yes See Memoria (Azithromyc 3-02 Instructio l in 250 MG 20:02: ns, Take 2 He r[place] Oral Tablet 00 tablets by [Zithromax] mouth the ) } Pack first day [Z-PAKS] then 1 tablet by mouth days 2-5., X 5 day, # 6 tab, 0 Refill(s), Pharmacy: [facility] {6 2019- Yes See Memoria (Azithromyc 3-02 Instructio l in 250 MG 20:02: ns, Take 2 He r[place] Oral Tablet 00 tablets by [Zithromax] mouth the ) } Pack first day [Z-PAKS] then 1 tablet by mouth days 2-5., X 5 day, # 6 tab, 0 Refill(s), Pharmacy: [facility] {6 2019- Yes See Memoria (Azithromyc 3-02 Instructio l in 250 MG 20:02: ns, Take 2 He r[place] Oral Tablet 00 tablets by [Zithromax] mouth the ) } Pack first day [Z-PAKS] then 1 tablet by mouth days 2-5., X 5 day, # 6 tab, 0 Refill(s), Pharmacy: [facility] {6 2019- Yes See Memoria (Azithromyc 3-02 Instructio l in 250 MG 20:02: ns, Take 2 He r[place] Oral Tablet 00 tablets by [Zithromax] mouth the ) } Pack first day [Z-PAKS] then 1 tablet by mouth days 2-5., X 5 day, # 6 tab, 0 Refill(s), Pharmacy: [facility] {6 2020-0 Yes See Memoria (Azithromyc 3-02 Instructio l in 250 MG 20:02: ns, Take 2 He r[place] Oral Tablet 00 tablets by [Zithromax] mouth the ) } Pack first day [Z-PAKS] then 1 tablet by mouth days 2-5., X 5 day, # 6 tab, 0 Refill(s), Pharmacy: [facility] Codeine 2020-0 Yes 5 mL, PO, Memor ia Phosphate 2 3-02 Q6H, PRN l MG/ML / 19:51: cough, X 6 Herm mathieu Guaifenesin 00 day, # 120 20 MG/ML mL, 0 Oral Refill(s), Solution Pharmacy: [[facility]] [facility] 200 ACTUAT 2020-0 Yes 1-2 puff, Me moria Albuterol 3-02 INHALER, l 0.09 19:51: Q6H, PRN [place] MG/ACTUAT 00 wheezing, Metered coughing, Dose or Inhaler shortness [ProAir of breath, HFA] # 1 ea, 0 Refill(s), Pharmacy: [facility] Codeine 2020-0 Yes 5 mL, PO, Memor ia Phosphate 2 3-02 Q6H, PRN l MG/ML / 19:51: cough, X 6 Herm mathieu Guaifenesin 00 day, # 120 20 MG/ML mL, 0 Oral Refill(s), Solution Pharmacy: [[facility]] [facility] 200 ACTUAT 2020-0 Yes 1-2 puff, Me moria Albuterol 3-02 INHALER, l 0.09 19:51: Q6H, PRN [place] MG/ACTUAT 00 wheezing, Metered coughing, Dose or Inhaler shortness [ProAir of breath, HFA] # 1 ea, 0 Refill(s), Pharmacy: [facility] Codeine 2020-0 Yes 5 mL, PO, Memor ia Phosphate 2 3-02 Q6H, PRN l MG/ML / 19:51: cough, X 6 Herm mathieu Guaifenesin 00 day, # 120 20 MG/ML mL, 0 Oral Refill(s), Solution Pharmacy: [[facility]] [facility] 200 ACTUAT 2020-0 Yes 1-2 puff, Me moria Albuterol 3-02 INHALER, l 0.09 19:51: Q6H, PRN [place] MG/ACTUAT 00 wheezing, Metered coughing, Dose or Inhaler shortness [ProAir of breath, HFA] # 1 ea, 0 Refill(s), Pharmacy: [facility] Codeine 2020-0 Yes 5 mL, PO, Memor ia Phosphate 2 3-02 Q6H, PRN l MG/ML / 19:51: cough, X 6 Herm mathieu Guaifenesin 00 day, # 120 20 MG/ML mL, 0 Oral Refill(s), Solution Pharmacy: [[facility]] [facility] 200 ACTUAT 2020-0 Yes 1-2 puff, Me moria Albuterol 3-02 INHALER, l 0.09 19:51: Q6H, PRN [place] MG/ACTUAT 00 wheezing, Metered coughing, Dose or Inhaler shortness [ProAir of breath, HFA] # 1 ea, 0 Refill(s), Pharmacy: [facility] Codeine 2020-0 Yes 5 mL, PO, Memor ia Phosphate 2 3-02 Q6H, PRN l MG/ML / 19:51: cough, X 6 Herm mathieu Guaifenesin 00 day, # 120 20 MG/ML mL, 0 Oral Refill(s), Solution Pharmacy: [[facility]] [facility] 200 ACTUAT 2020-0 Yes 1-2 puff, Me moria Albuterol 3-02 INHALER, l 0.09 19:51: Q6H, PRN [place] MG/ACTUAT 00 wheezing, Metered coughing, Dose or Inhaler shortness [ProAir of breath, HFA] # 1 ea, 0 Refill(s), Pharmacy: [facility] Codeine 2020-0 Yes 5 mL, PO, Memor ia Phosphate 2 3-02 Q6H, PRN l MG/ML / 19:51: cough, X 6 Herm mathieu Guaifenesin 00 day, # 120 20 MG/ML mL, 0 Oral Refill(s), Solution Pharm[facility]: [facility] 200 ACTUAT 2020-0 Yes 1-2 puff, Me moria Albuterol 3-02 INHALER, l 0.09 19:51: Q6H, PRN [place] MG/ACTUAT 00 wheezing, Metered coughing, Dose or Inhaler shortness [ProAir of breath, HFA] # 1 ea, 0 Refill(s), Pharmacy: [facility] Codeine 2020-0 Yes 5 mL, PO, Memor ia Phosphate 2 3-02 Q6H, PRN l MG/ML / 19:51: cough, X 6 Herm mathieu Guaifenesin 00 day, # 120 20 MG/ML mL, 0 Oral Refill(s), Solution Pharmacy: [[facility]] [facility] 200 ACTUAT 2020-0 Yes 1-2 puff, Me moria Albuterol 3-02 INHALER, l 0.09 19:51: Q6H, PRN [place] MG/ACTUAT 00 wheezing, Metered coughing, Dose or Inhaler shortness [ProAir of breath, HFA] # 1 ea, 0 Refill(s), Pharmacy: [facility] [facility]-0 Yes 5 mL, PO, Memor ia Phosphate 2 3-02 Q6H, PRN l MG/ML / 19:51: cough, X 6 Herm mathieu Guaifenesin 00 day, # 120 20 MG/ML mL, 0 Oral Refill(s), Solution Pharmacy: [[facility]] [facility] Codeine 2020-0 Yes 5 mL, PO, Memor ia Phosphate 2 3-02 Q6H, PRN l MG/ML / 19:51: cough, X 6 Herm mathieu Guaifenesin 00 day, # 120 20 MG/ML mL, 0 Oral Refill(s), Solution Pharmacy: [[facility]] Pharmacy [facility] 200 ACTUAT 2020-0 Yes 1-2 puff, Me moria Albuterol 3-02 INHALER, l 0.09 19:51: Q6H, PRN [place] MG/ACTUAT 00 wheezing, Metered coughing, Dose or Inhaler shortness [ProAir of breath, HFA] # 1 ea, 0 Refill(s), Pharmacy: [facility] 200 ACTUAT 2020-0 Yes 1-2 puff, Me moria Albuterol 3-02 INHALER, l 0.09 19:51: Q6H, PRN [place] MG/ACTUAT 00 wheezing, Metered coughing, Dose or Inhaler shortness [ProAir of breath, HFA] # 1 ea, 0 Refill(s), Pharmacy: [facility] Codeine 2020-0 Yes 5 mL, PO, Memor ia Phosphate 2 3-02 Q6H, PRN l MG/ML / 19:51: cough, X 6 Herm mathieu Guaifenesin 00 day, # 120 20 MG/ML mL, 0 Oral Refill(s), Solution Pharmacy: [[facility]] Pharmacy [facility] 200 ACTUAT 2020-0 Yes 1-2 puff, Me moria Albuterol 3-02 INHALER, l 0.09 19:51: Q6H, PRN [place] MG/ACTUAT 00 wheezing, Metered coughing, Dose or Inhaler shortness [ProAir of breath, HFA] # 1 ea, 0 Refill(s), Pharmacy: [facility] Fluticasone 2020-0 Yes 1-2 spray, Memoria propionate 2-26 NASAL, l 0.05 16:10: Daily, PRN [place] MG/ACTUAT 00 Congestion Metered , in each Dose Nasal nostril, # [place] 16 gm, 0 [Flonase] Refill(s), Pharmacy: [facility] Fluticasone 2020-0 Yes 1-2 spray, Memoria propionate 2-26 NASAL, l 0.05 16:10: Daily, PRN [place] MG/ACTUAT 00 Congestion Metered , in each Dose Nasal nostril, # [place] 16 gm, 0 [Flonase] Refill(s), Pharmacy: [facility] Fluticasone 2020-0 Yes 1-2 spray, Memoria propionate 2-26 NASAL, l 0.05 16:10: Daily, PRN [place] MG/ACTUAT 00 Congestion Metered , in each Dose Nasal nostril, # [place] 16 gm, 0 [Flonase] Refill(s), Pharmacy: [facility] Fluticasone 2020-0 Yes 1-2 spray, Memoria propionate 2-26 NASAL, l 0.05 16:10: Daily, PRN [place] MG/ACTUAT 00 Congestion Metered , in each Dose Nasal nostril, # [place] 16 gm, 0 [Flonase] Refill(s), Pharmacy: [facility] Fluticasone 2020-0 Yes 1-2 spray, Memoria propionate 2-26 NASAL, l 0.05 16:10: Daily, PRN [place] MG/ACTUAT 00 Congestion Metered , in each Dose Nasal nostril, # [place] 16 gm, 0 [Flonase] Refill(s), Pharmacy: [facility] Fluticasone 2020-0 Yes 1-2 spray, Memoria propionate 2-26 NASAL, l 0.05 16:10: Daily, PRN [place] MG/ACTUAT 00 Congestion Metered , in each Dose Nasal nostril, # [place] 16 gm, 0 [Flonase] Refill(s), Pharmacy: [facility] Fluticasone 2020-0 Yes 1-2 spray, Memoria propionate 2-26 NASAL, l 0.05 16:10: Daily, PRN [place] MG/ACTUAT 00 Congestion Metered , in each Dose Nasal nostril, # [place] 16 gm, 0 [Flonase] Refill(s), Pharmacy: [facility] Fluticasone 2020-0 Yes 1-2 spray, Memoria propionate 2-26 NASAL, l 0.05 16:10: Daily, PRN [place] MG/ACTUAT 00 Congestion Metered , in each Dose Nasal nostril, # [place] 16 gm, 0 [Flonase] Refill(s), Pharmacy: [facility] Fluticasone 2020-0 Yes 1-2 spray, Memoria propionate 2-26 NASAL, l 0.05 16:10: Daily, PRN [place] MG/ACTUAT 00 Congestion Metered , in each Dose Nasal nostril, # [place] 16 gm, 0 [Flonase] Refill(s), Pharmacy: [facility] Fluticasone 2020-0 Yes 1-2 spray, Memoria propionate 2-26 NASAL, l 0.05 16:10: Daily, PRN [place] MG/ACTUAT 00 Congestion Metered , in each Dose Nasal nostril, # [place] 16 gm, 0 [Flonase] Refill(s), Pharmacy: [facility] [id number] Theraflu 2020-0 Yes PO, Q6H, 0 Mem oria (pseudoephe 2-26 Refill(s) l drine) 15:31: [place] Daytime 00 Severe Cold Theraflu 2020-0 Yes PO, Q6H, 0 Mem oria (pseudoephe 2-26 Refill(s) l drine) 15:31: [place] Daytime 00 Severe Cold Theraflu 2020-0 Yes PO, Q6H, 0 Mem oria (pseudoephe 2-26 Refill(s) l drine) 15:: [place] Daytime 00 Severe Cold Theraflu 2020-0 Yes PO, Q6H, 0 Mem oria (pseudoephe 2-26 Refill(s) l drine) 15:31: [place] Daytime 00 Severe Cold Theraflu 2020-0 Yes PO, Q6H, 0 Mem oria (pseudoephe 2-26 Refill(s) l drine) 15:31: [place] Daytime 00 Severe Cold Theraflu 2020-0 Yes PO, Q6H, 0 Mem oria (pseudoephe 2-26 Refill(s) l drine) 15:31: [place] Daytime 00 Severe Cold Theraflu 2020-0 Yes PO, Q6H, 0 Mem oria (pseudoephe 2-26 Refill(s) l drine) 15:31: [place] Daytime 00 Severe Cold Theraflu 2020-0 Yes PO, Q6H, 0 Mem oria (pseudoephe 2-26 Refill(s) l drine) 15:31: [place] Daytime 00 Severe Cold Theraflu 2020-0 Yes PO, Q6H, 0 Mem oria (pseudoephe 2-26 Refill(s) l drine) 15:31: [place] Daytime 00 Severe Cold Theraflu 2020-0 Yes PO, Q6H, 0 Mem oria (pseudoephe 2-26 Refill(s) l drine) 15:31: [place] Daytime 00 Severe Cold traMADol traMADol 2019-0 Yes AKSHAT TAKE 1 [facility] HCl - 50 MG HCl - 50 MG 2-07 SHABBIR TABLET ity of Oral Tablet Oral Tablet 00:00: M.D. EVERY 4 TO [place] 00 6 HOURS Physici NEEDED. ans tramadol 2020-0 Yes 50 mg = 1 Derrick ihsan hydrochlori 1-20 tab, PO, l de 50 MG 22:15: Q8H, PRN Saima nn Oral Tablet 00 Pain, X 10 day, # 30 tab, 0 Refill(s), Pharmacy: [facility] tramadol 2020-0 Yes 50 mg = 1 Derrick ihsan hydrochlori 1-20 tab, PO, l de 50 MG 22:15: Q8H, PRN Saima nn Oral Tablet 00 Pain, X 10 day, # 30 tab, 0 Refill(s), Pharmacy: [facility] tramadol 2020-0 Yes 50 mg = 1 Derrick ihsan hydrochlori 1-20 tab, PO, l de 50 MG 22:15: Q8H, PRN Saima nn Oral Tablet 00 Pain, X 10 day, # 30 tab, 0 Refill(s), Pharmacy: [facility] tramadol 2020-0 Yes 50 mg = 1 Derrick ihsan hydrochlori 1-20 tab, PO, l de 50 MG 22:15: Q8H, PRN [place]aim[place] nn Oral Tablet 00 Pain, X 10 day, # 30 tab, 0 Refill(s), Pharmacy: [facility] tramadol 2020-0 Yes 50 mg = 1 Derrick ihsan hydrochlori 1-20 tab, PO, l de 50 MG 22:15: Q8H, PRN [place]aim[place] nn Oral Tablet 00 Pain, X 10 day, # 30 tab, 0 Refill(s), Pharmacy: [facility] tramadol 2020-0 Yes 50 mg = 1 Derrick ihsan hydrochlori 1-20 tab, PO, l de 50 MG 22:15: Q8H, PRN Saim[place] nn Oral Tablet 00 Pain, X 10 day, # 30 tab, 0 Refill(s), Pharmacy: [facility] tramadol 2020-0 Yes 50 mg = 1 Derrick ihsan hydrochlori 1-20 tab, PO, l de 50 MG 22:15: Q8H, PRN [place]aim[place] nn Oral Tablet 00 Pain, X 10 day, # 30 tab, 0 Refill(s), Pharmacy: [facility] tramadol 2020-0 Yes 50 mg = 1 Derrick ihsan hydrochlori 1-20 tab, PO, l de 50 MG 22:15: Q8H, PRN [place]aim[place] nn Oral Tablet 00 Pain, X 10 day, # 30 tab, 0 Refill(s), Pharmacy: [facility] tramadol 2020-0 Yes 50 mg = 1 Derrick ihsan hydrochlori 1-20 tab, PO, l de 50 MG 22:15: Q8H, PRN [place]aim[place] nn Oral Tablet 00 Pain, X 10 day, # 30 tab, 0 Refill(s), Pharmacy: [facility] tramadol 2020-0 Yes 50 mg = 1 Derrick ihsan hydrochlori 1-20 tab, PO, l de 50 MG 22:15: Q8H, PRN Saima nn Oral Tablet 00 Pain, X 10 day, # 30 tab, 0 Refill(s), Pharmacy: [facility] naproxen 2020-0 Yes 500 mg = 1 Mem oria 500 mg oral 1-09 tab, PO, l tablet 23:18: BID, PRN [place] 00 Pain, X 15 day, # 30 tab, 0 Refill(s), Pharmacy: [facility] naproxen 2020-0 Yes 500 mg = 1 Mem oria 500 mg oral 1-09 tab, PO, l tablet 23:18: BID, PRN [place] 00 Pain, X 15 day, # 30 tab, 0 Refill(s), Pharmacy: [facility] naproxen 2020-0 Yes 500 mg = 1 Mem oria 500 mg oral 1-09 tab, PO, l tablet 23:18: BID, PRN [place] 00 Pain, X 15 day, # 30 tab, 0 Refill(s), Pharmacy: [facility] naproxen 2020-0 Yes 500 mg = 1 Mem oria 500 mg oral 1-09 tab, PO, l tablet 23:18: BID, PRN [place] 00 Pain, X 15 day, # 30 tab, 0 Refill(s), Pharmacy: [facility] naproxen 2020-0 Yes 500 mg = 1 Mem oria 500 mg oral 1-09 tab, PO, l tablet 23:18: BID, PRN [place] 00 Pain, X 15 day, # 30 tab, 0 Refill(s), Pharmacy: [facility] [id number] naproxen 2020-0 Yes 500 mg = 1 Mem oria 500 mg oral 1-09 tab, PO, l tablet 23:18: BID, PRN [place] 00 Pain, X 15 day, # 30 tab, 0 Refill(s), Pharmacy: [facility] naproxen 2020-0 Yes 500 mg = 1 Mem oria 500 mg oral 1-09 tab, PO, l tablet 23:18: BID, PRN [place] 00 Pain, X 15 day, # 30 tab, 0 Refill(s), Pharmacy: [facility] naproxen 2020-0 Yes 500 mg = 1 Mem oria 500 mg oral 1-09 tab, PO, l tablet 23:18: BID, PRN [place] 00 Pain, X 15 day, # 30 tab, 0 Refill(s), Pharmacy: [facility] naproxen 2020-0 Yes 500 mg = 1 Mem oria 500 mg oral 1-09 tab, PO, l tablet 23:18: BID, PRN [place] 00 Pain, X 15 day, # 30 tab, 0 Refill(s), Pharmacy: [facility] naproxen 2020-0 Yes 500 mg = 1 Mem oria 500 mg oral 1-09 tab, PO, l tablet 23:18: BID, PRN [place] 00 Pain, X 15 day, # 30 tab, 0 Refill(s), Pharmacy: [facility] Ibuprofen 2020-0 No 200 mg, Memor ia 1-09 PO, BID, l 21:41: Takes 4 at [place] 00 a time, 0 Refill(s) Ibuprofen 2020-0 No 200 mg, Memor ia 1-09 PO, BID, l 21:41: Takes 4 at [place] 00 a time, 0 Refill(s) Ibuprofen 2020-0 No 200 mg, Memor ia 1-09 PO, BID, l 21:41: Takes 4 at [place] 00 a time, 0 Refill(s) Ibuprofen 2020-0 No 200 mg, Memor ia 1-09 PO, BID, l 21:41: Takes 4 at [place] 00 a time, 0 Refill(s) Ibuprofen 2020-0 No 200 mg, Memor ia 1-09 PO, BID, l 21:41: Takes 4 at [place] 00 a time, 0 Refill(s) Ibuprofen 2020-0 No 200 mg, Memor ia 1-09 PO, BID, l 21:41: Takes 4 at [place] 00 a time, 0 Refill(s) Ibuprofen 2020-0 No 200 mg, Memor ia 1-09 PO, BID, l 21:41: Takes 4 at [place] 00 a time, 0 Refill(s) Ibuprofen 2020-0 No 200 mg, Memor ia 1-09 PO, BID, l 21:41: Takes 4 at [place] 00 a time, 0 Refill(s) Ibuprofen 2020-0 No 200 mg, Memor ia 1-09 PO, BID, l 21:41: Takes 4 at [place] 00 a time, 0 Refill(s) Ibuprofen 2020-0 No 200 mg, Memor ia 1-09 PO, BID, l 21:41: Takes 4 at [place] 00 a time, 0 Refill(s) tramadol 2018-11 Yes 50 mg = 1 Derrick ihsan hydrochlori 2-18 tab, PO, l de 50 MG 07:52: Q6H, X 15 Herm mathieu Oral Tablet 00 day, # 18 [Ultram] tab, 0 Refill(s) tramadol 2018-11 Yes 50 mg = 1 Derrick ihsan hydrochlori 2-18 tab, PO, l de 50 MG 07:52: Q6H, X 15 Herm mathieu Oral Tablet 00 day, # 18 [Ultram] tab, 0 Refill(s) tramadol 2018-11 Yes 50 mg = 1 Derrick ihsan hydrochlori 2-18 tab, PO, l de 50 MG 07:52: Q6H, X 15 Herm mathieu Oral Tablet day, # 18 [Ultram] tab, 0 Refill(s) tramadol 2018-11 Yes 50 mg = 1 Derrick ihsan hydrochlori 2-18 tab, PO, l de 50 MG 07:52: Q6H, X 15 Herm mathieu Oral Tablet 00 day, # 18 [Ultram] tab, 0 Refill(s) tramadol 2018-11 Yes 50 mg = 1 Derrick ihsan hydrochlori 2-18 tab, PO, l de 50 MG 07:52: Q6H, X 15 Herm mathieu Oral Tablet 00 day, # 18 [Ultram] tab, 0 Refill(s) tramadol 2018-11 Yes 50 mg = 1 Derrick ihsan hydrochlori 2-18 tab, PO, l de 50 MG 07:52: Q6H, X 15 Herm mathieu Oral Tablet 00 day, # 18 [Ultram] tab, 0 Refill(s) tramadol 2018-11 Yes 50 mg = 1 Derrick ihsan hydrochlori 2-18 tab, PO, l de 50 MG 07:52: Q6H, X 15 Herm mathieu Oral Tablet 00 day, # 18 [Ultram] tab, 0 Refill(s) tramadol 2018-11 Yes 50 mg = 1 Derrick ihsan hydrochlori 2-18 tab, PO, l de 50 MG 07:52: Q6H, X 15 Herm mathieu Oral Tablet 00 day, # 18 [Ultram] tab, 0 Refill(s) tramadol 2018-11 Yes 50 mg = 1 Derrick ihsan hydrochlori 2-18 tab, PO, l de 50 MG 07:52: Q6H, X 15 Herm mathieu Oral Tablet 00 day, # 18 [Ultram] tab, 0 Refill(s) tramadol 2018-11 Yes 50 mg [...] with food, # 30 tab, 0 Refill(s) Motrin 600 2018-11 No 600 mg = 1 M emoria mg oral 2-18 tab, PO, l tablet 07:51: Q6H, take [place] n 00 with food, # 30 tab, 0 Refill(s) Motrin 600 2018-11 No 600 mg = 1 M emoria mg oral 2-18 tab, PO, l tablet 07:51: Q6H, take [place] n 00 with food, # 30 tab, 0 Refill(s) Motrin 600 2018-11 No 600 mg = 1 M emoria mg oral 2-18 tab, PO, l tablet 07:51: Q6H, take [place] n 00 with food, # 30 tab, 0 Refill(s) Motrin 600 2018-11 No 600 mg = 1 M emoria mg oral 2-18 tab, PO, l tablet 07:51: Q6H, take [place] n 00 with food, # 30 tab, 0 Refill(s) Motrin 600 2018-11 No 600 mg = 1 M emoria mg oral 2-18 tab, PO, l tablet 07:51: Q6H, take [place] n 00 with food, # 30 tab, 0 Refill(s) Motrin 600 2018-11 No 600 mg = 1 M emoria mg oral 2-18 tab, PO, l tablet 07:51: Q6H, take [place] n 00 with food, # 30 tab, 0 Refill(s) Motrin 600 2018-11 No 600 mg = 1 M emoria mg oral 2-18 tab, PO, l tablet 07:51: Q6H, take [place] n 00 with food, # 30 tab, 0 Refill(s) Motrin 600 2018-11 No 600 mg = 1 M emoria mg oral 2-18 tab, PO, l tablet 07:51: Q6H, take [place] n 00 with food, # 30 tab, 0 Refill(s) Motrin 600 2018-11 No 600 mg = 1 M emoria mg oral 2-18 tab, PO, l tablet 07:51: Q6H, take [place] n 00 with food, # 30 tab, 0 Refill(s) Morphine 2018-11 No Notes: Memoria 2-18 (Same l 05:48: as:MORPhin [place] 00 e Sulfate) Ondansetron 2018-11 No Notes: Derrick ihsan 2-18 (Same as: l 05:48: Zofran) [place] 00 MEDICATION WASTE Product Size: 4 mg Product Wasted: ___ mg Morphine 2018-11 No Notes: Memoria 2-18 (Same l 05:48: as:MORPhin [place] 00 e Sulfate) Ondansetron 2018- No Notes: Derrick ihsan 2-18 (Same as: l 05:48: Zofran) [place] 00 MEDICATION WASTE Product Size: 4 mg Product Wasted: ___ mg Morphine 2018- No Notes: Memoria 2-18 (Same l 05:48: as:MORPhin [place] 00 e Sulfate) Ondansetron 2018-11 No Notes: Derrick ihsan 2-18 (Same as: l 05:48: Zofran) [place] 00 MEDICATION WASTE Product Size: 4 mg Product Wasted: ___ mg Morphine 2019- No Notes: Memoria 2-18 (Same l 05:48: as:MORPhin [place] 00 e Sulfate) Ondansetron 2018-11 No Notes: Derrick ihsan 2-18 (Same as: l 05:48: Zofran) [place] 00 MEDICATION WASTE Product Size: 4 mg Product Wasted: ___ mg Morphine 2018- No Notes: Memoria 2-18 (Same l 05:48: as:MORPhin [place] 00 e Sulfate) Ondansetron 2018- No Notes: Derrick ihsan 2-18 (Same as: l 05:48: Zofran) [place] 00 MEDICATION WASTE Product Size: 4 mg Product Wasted: ___ mg Morphine 2018- No Notes: Memoria 2-18 (Same l 05:48: as:MORPhin [place] 00 e Sulfate) Ondansetron 2018-11 No Notes: Derrick ihsan 2-18 (Same as: l 05:48: Zofran) [place] 00 MEDICATION WASTE Product Size: 4 mg Product Wasted: ___ mg Morphine 2018- No Notes: Memoria 2-18 (Same l 05:48: as:MORPhin [place] 00 e Sulfate) Ondansetron 2018-11 No Notes: Derrick ihsan 2-18 (Same as: l 05:48: Zofran) [place] 00 MEDICATION WASTE Product Size: 4 mg Product Wasted: ___ mg Morphine 2018- No Notes: Memoria 2-18 (Same l 05:48: as:MORPhin [place] 00 e Sulfate) Ondansetron 2018- No Notes: Derrick ihsan 2-18 (Same as: l 05:48: Zofran) [place] 00 MEDICATION WASTE Product Size: 4 mg Product Wasted: ___ mg Morphine 2018- No Notes: Memoria 2-18 (Same l 05:48: as:MORPhin [place] 00 e Sulfate) Ondansetron 2018- No Notes: Derrick ihsan 2-18 (Same as: l 05:48: Zofran) [place] 00 MEDICATION WASTE Product Size: 4 mg Product Wasted: ___ mg Morphine 2018-11 No Notes: Memoria 2-18 (Same l 05:48: as:MORPhin [place] 00 e Sulfate) Ondansetron 2018-11 No Notes: Derrick ihsan 2-18 (Same as: l 05:48: Zofran) [place] 00 MEDICATION WASTE Product Size: 4 mg Product Wasted: ___ mg Amoxicillin 2019-0 Yes 875 mg = 1 Memoria 875 MG / 7-02 tab, PO, l Clavulanate 08:42: BID, X 10 H ermann 125 MG Oral 00 day, # 20 Tablet tab, 0 [Augmentin Refill(s) 875-mg] tramadol Yes 50 mg = 1 Derrick ihsan hydrochlori 7-02 tab, PO, l de 50 MG 08:42: Q6H, PRN Saima nn Oral Tablet 00 Pain, X 3 day, # 10 tab, 0 Refill(s) ibuprofen 2019- Yes 600 mg, Memor ia 600 mg oral 7-02 PO, Q8H, l tablet 08:42: PRN Pain, [place] n 00 Take with food, X 3 day, # 10 tab, 0 Refill(s) Famotidine Yes 20 mg = 1 Me moria 20 MG Oral 7-02 tab, PO, l Tablet 08:42: BID, # 14 Candelario n [Pepcid] 00 tab, 0 Refill(s) Amoxicillin 2019- Yes 875 mg = 1 Memoria 875 MG / 7-02 tab, PO, l Clavulanate 08:42: BID, X 10 H ermann 125 MG Oral 00 day, # 20 Tablet tab, 0 [Augmentin Refill(s) 875-mg] tramadol Yes 50 mg = 1 Derrick ihsan hydrochlori 7-02 tab, PO, l de 50 MG 08:42: Q6H, PRN Siama nn Oral Tablet 00 Pain, X 3 day, # 10 tab, 0 Refill(s) ibuprofen 2019-0 Yes 600 mg, Memor ia 600 mg oral 7-02 PO, Q8H, l tablet 08:42: PRN Pain, [place] n 00 Take with food, X 3 day, # 10 tab, 0 Refill(s) Famotidine 2019- Yes 20 mg = 1 Me moria 20 MG Oral 7-02 tab, PO, l Tablet 08:42: BID, # 14 [place] n [Pepcid] 00 tab, 0 Refill(s) Amoxicillin 2019-0 Yes 875 mg = 1 Memoria 875 MG / 7-02 tab, PO, l Clavulanate 08:42: BID, X 10 H ermann 125 MG Oral 00 day, # 20 Tablet tab, 0 [Augmentin Refill(s) 875-mg] tramadol 2018- Yes 50 mg = 1 Derrick ihsan hydrochlori 7-02 tab, PO, l de 50 MG 08:42: Q6H, PRN Saima nn Oral Tablet 00 Pain, X 3 day, # 10 tab, 0 Refill(s) ibuprofen 2018- Yes 600 mg, Memor ia 600 mg oral 7-02 PO, Q8H, l tablet 08:42: PRN Pain, [place] n 00 Take with food, X 3 day, # 10 tab, 0 Refill(s) Famotidine 2018- Yes 20 mg = 1 Me moria 20 MG Oral 7-02 tab, PO, l Tablet 08:42: BID, # 14 [place] n [Pepcid] 00 tab, 0 Refill(s) Amoxicillin 2019-0 Yes 875 mg = 1 Memoria 875 MG / 7-02 tab, PO, l Clavulanate 08:42: BID, X 10 H ermann 125 MG Oral 00 day, # 20 Tablet tab, 0 [Augmentin Refill(s) 875-mg] tramadol 2018- Yes 50 mg = 1 Derrick ihsan hydrochlori 7-02 tab, PO, l de 50 MG 08:42: Q6H, PRN Saima nn Oral Tablet 00 Pain, X 3 day, # 10 tab, 0 Refill(s) ibuprofen 2019-0 Yes 600 mg, Memor ia 600 mg oral 7-02 PO, Q8H, l tablet 08:42: PRN Pain, [place] n 00 Take with food, X 3 day, # 10 tab, 0 Refill(s) Famotidine 2019- Yes 20 mg = 1 Me moria 20 MG Oral 7-02 tab, PO, l Tablet 08:42: BID, # 14 [place] n [Pepcid] 00 tab, 0 Refill(s) Amoxicillin 2019-0 Yes 875 mg = 1 Memoria 875 MG / 7-02 tab, PO, l Clavulanate 08:42: BID, X 10 H ermann 125 MG Oral 00 day, # 20 Tablet tab, 0 [Augmentin Refill(s) 875-mg] tramadol 2019- Yes 50 mg = 1 Derrick ihsan hydrochlori 7-02 tab, PO, l de 50 MG 08:42: Q6H, PRN Saima nn Oral Tablet 00 Pain, X 3 day, # 10 tab, 0 Refill(s) ibuprofen 2019-0 Yes 600 mg, Memor ia 600 mg oral 7-02 PO, Q8H, l tablet 08:42: PRN Pain, [place] n 00 Take with food, X 3 day, # 10 tab, 0 Refill(s) Famotidine 2018- Yes 20 mg = 1 Me moria 20 MG Oral 7-02 tab, PO, l Tablet 08:42: BID, # 14 [place] n [Pepcid] 00 tab, 0 Refill(s) Amoxicillin 2018- Yes 875 mg = 1 Memoria 875 MG / 7-02 tab, PO, l Clavulanate 08:42: BID, X 10 H ermann 125 MG Oral 00 day, # 20 Tablet tab, 0 [Augmentin Refill(s) 875-mg] tramadol 2018-0 Yes 50 mg = 1 Derrick ihsan hydrochlori 7-02 tab, PO, l de 50 MG 08:42: Q6H, PRN Saima nn Oral Tablet 00 Pain, X 3 day, # 10 tab, 0 Refill(s) ibuprofen 2019-0 Yes 600 mg, Memor ia 600 mg oral 7-02 PO, Q8H, l tablet 08:42: PRN Pain, [place] n 00 Take with food, X 3 day, # 10 tab, 0 Refill(s) Famotidine 2019-0 Yes 20 mg = 1 Me moria 20 MG Oral 7-02 tab, PO, l Tablet 08:42: BID, # 14 [place] n [Pepcid] 00 tab, 0 Refill(s) Amoxicillin 2019-0 Yes 875 mg = 1 Memoria 875 MG / 7-02 tab, PO, l Clavulanate 08:42: BID, X 10 H ermann 125 MG Oral 00 day, # 20 Tablet tab, 0 [Augmentin Refill(s) 875-mg] tramadol 2019-0 Yes 50 mg = 1 Derrick ihsan hydrochlori 7-02 tab, PO, l de 50 MG 08:42: Q6H, PRN Saima nn Oral Tablet 00 Pain, X 3 day, # 10 tab, 0 Refill(s) ibuprofen 2019-0 Yes 600 mg, Memor ia 600 mg oral 7-02 PO, Q8H, l tablet 08:42: PRN Pain, [place] n 00 Take with food, X 3 day, # 10 tab, 0 Refill(s) Famotidine 2019-0 Yes 20 mg = 1 Me moria 20 MG Oral 7-02 tab, PO, l Tablet 08:42: BID, # 14 [place] n [Pepcid] 00 tab, 0 Refill(s) Amoxicillin 2019-0 Yes 875 mg = 1 Memoria 875 MG / 7-02 tab, PO, l Clavulanate 08:42: BID, X 10 H ermann 125 MG Oral 00 day, # 20 Tablet tab, 0 [Augmentin Refill(s) 875-mg] tramadol 2019-0 Yes 50 mg = 1 Derrick ihsan hydrochlori 7-02 tab, PO, l de 50 MG 08:42: Q6H, PRN Saima nn Oral Tablet 00 Pain, X 3 day, # 10 tab, 0 Refill(s) ibuprofen 2019-0 Yes 600 mg, Memor ia 600 mg oral 7-02 PO, Q8H, l tablet 08:42: PRN Pain, [place] n 00 Take with food, X 3 day, # 10 tab, 0 Refill(s) Famotidine 2019-0 Yes 20 mg = 1 Me moria 20 MG Oral 7-02 tab, PO, l Tablet 08:42: BID, # 14 [place] n [Pepcid] 00 tab, 0 Refill(s) Amoxicillin 2019-0 Yes 875 mg = 1 Memoria 875 MG / 7-02 tab, PO, l Clavulanate 08:42: BID, X 10 H ermann 125 MG Oral 00 day, # 20 Tablet tab, 0 [Augmentin Refill(s) 875-mg] tramadol 2019-0 Yes 50 mg = 1 Derrick ihsan hydrochlori 7-02 tab, PO, l de 50 MG 08:42: Q6H, PRN Saima nn Oral Tablet 00 Pain, X 3 day, # 10 tab, 0 Refill(s) ibuprofen Yes 600 mg, Memor ia 600 mg oral 7-02 PO, Q8H, l tablet 08:42: PRN Pain, [place] n 00 Take with food, X 3 day, # 10 tab, 0 Refill(s) Famotidine Yes 20 mg = 1 Me moria 20 MG Oral 7-02 tab, PO, l Tablet 08:42: BID, # 14 [place] n [Pepcid] 00 tab, 0 Refill(s) Amoxicillin Yes 875 mg = 1 Memoria 875 MG / 7-02 tab, PO, l Clavulanate 08:42: BID, X 10 H ermann 125 MG Oral 00 day, # 20 Tablet tab, 0 [Augmentin Refill(s) 875-mg] tramadol Yes 50 mg = 1 Derrick ihsan hydrochlori 7-02 tab, PO, l de 50 MG 08:42: Q6H, PRN Saima nn Oral Tablet 00 Pain, X 3 day, # 10 tab, 0 Refill(s) ibuprofen Yes 600 mg, Memor ia 600 mg oral 7-02 PO, Q8H, l tablet 08:42: PRN Pain, Candelario n 00 Take with food, X 3 day, # 10 tab, 0 Refill(s) Famotidine Yes 20 mg = 1 Me moria 20 MG Oral -02 tab, PO, l Tablet 08:42: BID, # 14 Candelario n [Pepcid] 00 tab, 0 Refill(s) BD Normal No Notes: Memori a Saline - (Same as: l Flush 07:11: BD [place] 00 Posiflush) BD Normal No Notes: Memori a Saline - (Same as: l Flush 07:11: BD [place] 00 Posiflush) BD Normal No Notes: Memori a Saline - (Same as: l Flush 07:11: BD [place] 00 Posiflush) BD Normal 2019-0 No Notes: Memori a Saline 7-02 (Same as: l Flush 07:11: BD [place] 00 Posiflush) BD Normal 2019-0 No Notes: Memori a Saline 7-02 (Same as: l Flush 07:11: BD [place] 00 Posiflush) BD Normal 2019-0 No Notes: Memori a Saline 7-02 (Same as: l Flush 07:11: BD [place] 00 Posiflush) BD Normal 2019-0 No Notes: Memori a Saline 7-02 (Same as: l Flush 07:11: BD [place] 00 Posiflush) BD Normal 2019-0 No Notes: Memori a Saline 7-02 (Same as: l Flush 07:11: BD [place] 00 Posiflush) BD Normal 2018-0 No Notes: Memori a Saline 7-02 (Same as: l Flush 07:11: BD [place] 00 Posiflush) BD Normal 2019-0 No Notes: Memori a Saline 7-02 (Same as: l Flush 07:11: BD [place] 00 Posiflush) BD Normal 2019-0 No Notes: Memori a Saline 7-02 (Same as: l Flush 07:10: BD [place] 00 Posiflush) BD Normal 2019-0 No Notes: Memori a Saline 7-02 (Same as: l Flush 07:10: BD [place] 00 Posiflush) BD Normal 2019-0 No Notes: Memori a Saline 7-02 (Same as: l Flush 07:10: BD [place] 00 Posiflush) BD Normal 2019-0 No Notes: Memori a Saline 7-02 (Same as: l Flush 07:10: BD [place] 00 Posiflush) BD Normal 2019-0 No Notes: Memori a Saline 7-02 (Same as: l Flush 07:10: BD [place] 00 Posiflush) BD Normal 2019-0 No Notes: Memori a Saline 7-02 (Same as: l Flush 07:10: BD [place] 00 Posiflush) BD Normal 2019-0 No Notes: Memori a Saline 7-02 (Same as: l Flush 07:10: BD [place] 00 Posiflush) BD Normal 2019-0 No Notes: Memori a Saline 7-02 (Same as: l Flush 07:10: BD [place] 00 Posiflush) BD Normal 2019-0 No Notes: Memori a Saline - (Same as: l Flush 07:10: BD [place] Posiflush) BD Normal 2019-0 No Notes: Memori a Saline - (Same as: l Flush 07:10: BD [place] Posiflush) Amoxicillin 2019-0 No 875 mg, Mem oria 875 MG / 05-10 Route: PO, l Clavulanate 07:01: Drug Form: [place] 125 MG Oral 00 TAB, Tablet Dosing [Augmentin Weight 875-mg] 54.545, kg, ONCE, Start date: 05/10/19 2:01:00 CDT, Stop date: 05/10/19 2:01:00 CDT, 0 Amoxicillin 2019-0 No 875 mg, Mem oria 875 MG / 05-10 Route: PO, l Clavulanate 07:01: Drug Form: [place] 125 MG Oral 00 TAB, Tablet Dosing [Augmentin Weight 875-mg] 54.545, kg, ONCE, Start date: 05/10/19 2:01:00 CDT, Stop date: 05/10/19 2:01:00 CDT, 0 Amoxicillin 2019-0 No 875 mg, Mem oria 875 MG / 05-10 Route: PO, l Clavulanate 07:01: Drug Form: [place] 125 MG Oral 00 TAB, Tablet Dosing [Augmentin Weight 875-mg] 54.545, kg, ONCE, Start date: 05/10/19 2:01:00 CDT, Stop date: 05/10/19 2:01:00 CDT, 0 Amoxicillin 2019-0 No 875 mg, Mem oria 875 MG / 05-10 Route: PO, l Clavulanate 07:01: Drug Form: [place] 125 MG Oral 00 TAB, Tablet Dosing [Augmentin Weight 875-mg] 54.545, kg, ONCE, Start date: 05/10/19 2:01:00 CDT, Stop date: 05/10/19 2:01:00 CDT, 0 Amoxicillin 2019-0 No 875 mg, Mem oria 875 MG / 05-10 Route: PO, l Clavulanate 07:01: Drug Form: [place] 125 MG Oral 00 TAB, Tablet Dosing [Augmentin Weight 875-mg] 54.545, kg, ONCE, Start date: 05/10/19 2:01:00 CDT, Stop date: 05/10/19 2:01:00 CDT, 0 Amoxicillin 2019-0 No 875 mg, Mem [facility] 875 MG / 05-10 Route: PO, l Clavulanate 07:01: Drug Form: [place] 125 MG Oral 00 TAB, Tablet Dosing [Augmentin Weight 875-mg] 54.545, kg, ONCE, Start date: 05/10/19 2:01:00 CDT, Stop date: 05/10/19 2:01:00 CDT, 0 Amoxicillin 2019-0 No 875 mg, Mem o[facility] 875 MG / 05-10 Route: PO, l Clavulanate 07:01: Drug Form: [place] 125 MG Oral 00 TAB, Tablet Dosing [Augmentin Weight 875-mg] 54.545, kg, ONCE, Start date: 05/10/19 2:01:00 CDT, Stop date: 05/10/19 2:01:00 CDT, 0 Amoxicillin 2019-0 No 875 mg, [facility] 875 MG / 05-10 Route: PO, l Clavulanate 07:01: Drug Form: [place] 125 MG Oral 00 TAB, Tablet Dosing [Augmentin Weight 875-mg] 54.545, kg, ONCE, Start date: 05/10/19 2:01:00 CDT, Stop date: 05/10/19 2:01:00 CDT, 0 Amoxicillin 2019-0 No 875 mg, [facility] 875 MG / 05-10 Route: PO, l Clavulanate 07:01: Drug Form: [place] 125 MG Oral 00 TAB, Tablet Dosing [Augmentin Weight 875-mg] 54.545, kg, ONCE, Start date: 05/10/19 2:01:00 CDT, Stop date: 05/10/19 2:01:00 CDT, 0 Amoxicillin 2019-0 No 875 mg, [facility] 875 MG / 05-10 Route: PO, l Clavulanate 07:01: Drug Form: [place] 125 MG Oral 00 TAB, Tablet Dosing [Augmentin Weight 875-mg] 54.545, kg, ONCE, Start date: 05/10/19 2:01:00 CDT, Stop date: 05/10/19 2:01:00 CDT, 0 Ibuprofen 2019-0 No 600 mg, Memor ia 7- Route: PO, l 06:54: ONCE, [place] Dosing Weight 54.545, kg, Priority: STAT, Start date: 05/10/19 1:54:00 CDT, Stop date: 05/10/19 1:54:00 CDT Famotidine 2019-0 No 1 tab, [facility] 20 MG Oral 05-10 Route: PO, l Tablet 06:54: ONCE, [place] [Pepcid] Dosing Weight 54.545, kg, Start date: 05/10/19 1:54:00 CDT, Stop date: 05/10/19 1:54:00 CDT acetaminoph 2019-0 No 1 tab, Derrick ihsan en-codeine 05-10 Route: PO, l #3 06:54: Dosing Weight 54.545, kg, ONCE, STAT, Start date: 05/10/19 1:54:00 CDT, Stop date: 05/10/19 1:54:00 CDT Ibuprofen 2019-0 No 600 mg, Memor ia - Route: PO, l 06:54: ONCE, [place] Dosing Weight 54.545, kg, Priority: STAT, Start date: 05/10/19 1:54:00 CDT, Stop date: 05/10/19 1:54:00 CDT Famotidine 2019-0 No 1 tab, [facility] 20 MG Oral 05-10 Route: PO, l Tablet 06:54: ONCE, [place] [Pepcid] Dosing Weight 54.545, kg, Start date: 05/10/19 1:54:00 CDT, Stop date: 05/10/19 1:54:00 CDT acetaminoph 2019-0 No 1 tab, Derrick ihsan en-codeine 7- Route: PO, l #3 06:54: Dosing Weight 54.545, kg, ONCE, STAT, Start date: 05/10/19 1:54:00 CDT, Stop date: 05/10/19 1:54:00 CDT Ibuprofen 2019-0 No 600 mg, [facility] 7- Route: PO, l 06:54: ONCE, Dosing Weight 54.545, kg, Priority: STAT, Start date: 05/10/19 1:54:00 CDT, Stop date: 05/10/19 1:54:00 CDT Famotidine 2019-0 No 1 tab, [facility] 20 MG Oral 05-10 Route: PO, l Tablet 06:54: ONCE, [place] [Pepcid] Dosing Weight 54.545, kg, Start date: 05/10/19 1:54:00 CDT, Stop date: 05/10/19 1:54:00 CDT acetaminoph 2019-0 No 1 tab, Derrick ihsan en-codeine - Route: PO, l #3 06:54: Dosing Weight 54.545, kg, ONCE, STAT, Start date: 05/10/19 1:54:00 CDT, Stop date: 05/10/19 1:54:00 CDT Ibuprofen 2019-0 No 600 mg, Mem[facility] ia - Route: PO, l 06:54: ONCE, Dosing Weight 54.545, kg, Priority: STAT, Start date: 05/10/19 1:54:00 CDT, Stop date: 05/10/19 1:54:00 CDT Famotidine 2019-0 No 1 tab, [facility] 20 MG Oral 05-10 Route: PO, l Tablet 06:54: ONCE, [place] [Pepcid] Dosing Weight 54.545, kg, Start date: 05/10/19 1:54:00 CDT, Stop date: 05/10/19 1:54:00 CDT acetaminoph 2019-0 No 1 tab, Derrick hisan en-codeine - Route: PO, l #3 06:54: Dosing Weight 54.545, kg, ONCE, STAT, Start date: 05/10/19 1:54:00 CDT, Stop date: 05/10/19 1:54:00 CDT Ibuprofen 2019-0 No 600 mg, Mem[facility] 7- Route: PO, l 06:54: ONCE, Dosing Weight 54.545, kg, Priority: STAT, Start date: 05/10/19 1:54:00 CDT, Stop date: 05/10/19 1:54:00 CDT Famotidine 2019-0 No 1 tab, [facility] 20 MG Oral 7- Route: PO, l Tablet 06:54: ONCE, [place] [Pepcid] Dosing Weight 54.545, kg, Start date: 05/10/19 1:54:00 CDT, Stop date: 05/10/19 1:54:00 CDT acetaminoph 2019-0 No 1 tab, Derrick ihsan en-codeine 7- Route: PO, l #3 06:54: Dosing Weight 54.545, kg, ONCE, STAT, Start date: 05/10/19 1:54:00 CDT, Stop date: 05/10/19 1:54:00 CDT Ibuprofen 2019-0 No 600 mg, [facility] 7- Route: PO, l 06:54: ONCE, Dosing Weight 54.545, kg, Priority: STAT, Start date: 05/10/19 1:54:00 CDT, Stop date: 05/10/19 1:54:00 CDT Famotidine 2019-0 No 1 tab, [facility] 20 MG Oral - Route: PO, l Tablet 06:54: ONCE, [place] [Pepcid] Dosing Weight 54.545, kg, Start date: 05/10/19 1:54:00 CDT, Stop date: 05/10/19 1:54:00 CDT acetaminoph 2019-0 No 1 tab, Derrick ihsan en-codeine 7- Route: PO, l #3 06:54: Dosing Weight 54.545, kg, ONCE, STAT, Start date: 05/10/19 1:54:00 CDT, Stop date: 05/10/19 1:54:00 CDT Ibuprofen 2019-0 No 600 mg, Mem[facility] ia 7- Route: PO, l 06:54: ONCE, [place] 00 Dosing Weight 54.545, kg, Priority: STAT, Start date: 05/10/19 1:54:00 CDT, Stop date: 05/10/19 1:54:00 CDT Famotidine 2019-0 No 1 tab, [facility] 20 MG Oral 7- Route: PO, l Tablet 06:54: ONCE, [place] [Pepcid] Dosing Weight 54.545, kg, Start date: 05/10/19 1:54:00 CDT, Stop date: 05/10/19 1:54:00 CDT acetaminoph 2019-0 No 1 tab, Derrick ihsan en-codeine 7- Route: PO, l #3 06:54: Dosing Weight 54.545, kg, ONCE, STAT, Start date: 05/10/19 1:54:00 CDT, Stop date: 05/10/19 1:54:00 CDT Ibuprofen 2019-0 No 600 mg, Mem[facility] ia 7- Route: PO, l 06:54: ONCE, [place] Dosing Weight 54.545, kg, Priority: STAT, Start date: 05/10/19 1:54:00 CDT, Stop date: 05/10/19 1:54:00 CDT Famotidine 2019-0 No 1 tab, [facility] 20 MG Oral - Route: PO, l Tablet 06:54: ONCE, [place] [Pepcid] Dosing Weight 54.545, kg, Start date: 05/10/19 1:54:00 CDT, Stop date: 05/10/19 1:54:00 CDT acetaminoph 2019-0 No 1 tab, Derrick ihsan en-codeine - Route: PO, l #3 06:54: Dosing Weight 54.545, kg, ONCE, STAT, Start date: 05/10/19 1:54:00 CDT, Stop date: 05/10/19 1:54:00 CDT Ibuprofen 2019-0 No 600 mg, Mem[facility] 7- Route: PO, l 06:54: ONCE, [place] Dosing Weight 54.545, kg, Priority: STAT, Start date: 05/10/19 1:54:00 CDT, Stop date: 05/10/19 1:54:00 CDT Famotidine 2019-0 No 1 tab, [facility] 20 MG Oral 7- Route: PO, l Tablet 06:54: ONCE, [place] [Pepcid] Dosing Weight 54.545, kg, Start date: 05/10/19 1:54:00 CDT, Stop date: 05/10/19 1:54:00 CDT acetaminoph 2018-0 No 1 tab, Derrick ihsan en-codeine 05-10 Route: PO, l #3 06:54: Dosing [place] Weight 54.545, kg, ONCE, STAT, Start date: 05/10/19 1:54:00 CDT, Stop date: 05/10/19 1:54:00 CDT Ibuprofen 2019-0 No 600 mg, Memor ia 05-10 Route: PO, l 06:54: ONCE, [place] Dosing Weight 54.545, kg, Priority: STAT, Start date: 05/10/19 1:54:00 CDT, Stop date: 05/10/19 1:54:00 CDT Famotidine 2018-0 No 1 tab, [facility] 20 MG Oral 05-10 Route: PO, l Tablet 06:54: ONCE, [place] [Pepcid] Dosing Weight 54.545, kg, Start date: 05/10/19 1:54:00 CDT, Stop date: 05/10/19 1:54:00 CDT acetaminoph 2018-0 No 1 tab, Derrick ihsan en-codeine 05-10 Route: PO, l #3 06:54: Dosing [place] 00 Weight 54.545, kg, ONCE, STAT, Start date: 05/10/19 1:54:00 CDT, Stop date: 05/10/19 1:54:00 CDT promethazin 2017-0 Yes 12.5mg Q6H Take 0.5 Method[facility] (PHENERGAN) 00:00: (12.5 mg Ho spita 25 MG 00 total) by l tablet mouth every 6 (six) hours as needed for nausea or vomiting for up to 12 doses. Immunizations Ordered Filled Immunization Date Status Comments [facility] e Immunization Name Name AP 2021-05-13 Completed [facility] 00:00:00 [facility] TD 2021-05-13 Completed [facility] 00:00:00 [facility] TDAP 2021-05-13 Completed [facility] 00:00:00 [facility] TDAP 2021-05-13 Completed [facility] 00:00:00 [facility] TDAP 2021-05-13 Completed [facility] 00:00:00 [facility] Influenza Virus 2020-12-20 Completed Universit y of Vaccine Quad .5 mL 00:00:00 [facility] 6+ MO Branch Influenza Virus 2020-12-20 Completed Universit y of Vaccine [place] .5 mL 00:00:00 [facility] 6+ MO Branch Influenza Virus 2020-12-20 Completed Universit y of Vaccine [place] .5 mL 00:00:00 [facility] 6+ MO Branch Influenza Virus 2020-12-20 Completed Universit y of Vaccine [place] .5 mL 00:00:00 [facility] 6+ MO Branch Influenza Virus 2020-12-20 Completed Universit y of Vaccine [place] .5 mL 00:00:00 [facility] 6+ MO Branch Influenza Virus 2020-12-20 Completed Universit y of Vaccine [place] .5 mL 00:00:00 [facility] 6+ MO Branch diphtheria/pertussi 2019-05-10 Completed Mem[facility] ial [place] [facility], acel/tetanus 07:04:00 adult diphtheria/pertussi 2019-05-10 Completed [facility] [place], acel/tetanus 07:04:00 adult diphtheria/pertussi 2019-05-10 Completed [facility] [place], acel/tetanus 07:04:00 adult diphtheria/pertussi 2019-05-10 Completed [facility] [place], acel/tetanus 07:04:00 adult diphtheria/pertussi 2019-05-10 Completed [facility] [place], acel/tetanus 07:04:00 adult diphtheria/pertussi 2019-05-10 Completed [facility] [place], acel/tetanus 07:04:00 adult diphtheria/pertussi 2019-05-10 Completed [facility] [place], acel/tetanus 07:04:00 adult diphtheria/pertussi 2019-05-10 Completed [facility] [place], acel/tetanus 07:04:00 adult diphtheria/pertussi 2019-05-10 Completed [facility] [place], acel/tetanus 07:04:00 adult diphtheria/pertussi 2019-05-10 Completed [facility] [place], acel/tetanus 07:04:00 adult Influenza Virus 2018-09-01 Completed [facility]it [facility] Vaccine [place] .5 mL 00:00:00 [facility] 6+ [facility] Influenza Virus 2018-09-01 Completed [facility] of Vaccine [place] .5 mL 00:00:00 [facility] 6+ [facility] Influenza Virus 2018-09-01 Completed [facility]it [facility] of Vaccine [place] .5 mL 00:00:00 [facility] 6+ [facility] Influenza Virus 2018-09-01 Completed [facility]it [facility] of Vaccine [place] .5 mL 00:00:00 [facility] 6+ [facility] Influenza Virus 2018-09-01 Completed [facility]it [facility] of Vaccine [place] .5 mL 00:00:00 [facility] 6+ [facility] Influenza Virus 2018-09-01 Completed Universit y of Vaccine [place] .5 mL 00:00:00 [facility] 6+ [facility] PPD (TB) 2018-08-27 Completed [facility] 00:00:00 [facility] PPD (TB) 2018-08-27 Completed [facility] 00:00:00 [facility] PPD (TB) 2018-08-27 Completed [facility] 00:00:00 [facility] PPD (TB) 2018-08-27 Completed [facility] 00:00:00 [facility] PPD (TB) 2018-08-27 Completed [facility] 00:00:00 [facility] PPD (TB) 2018-08-27 Completed [facility] 00:00:00 [facility] TDAP (ADACEL) 2012-11-09 Completed University of VACCINE 00:00:00 [facility] TDAP (ADACEL) 2012-11-09 Completed University of VACCINE 00:00:00 [facility] TDAP (ADACEL) 2012-11-09 Completed University of VACCINE 00:00:00 [facility] TDAP (ADACEL) 2012-11-09 Completed University of VACCINE 00:00:00 [facility] TDAP (ADACEL) 2012-11-09 Completed University of VACCINE 00:00:00 [facility] TDAP (ADACEL) 2012-11-09 Completed University of VACCINE 00:00:00 [facility] Vital Signs Vital Name Observation Time Observation Value Comments Source Systolic blood 2021-07-11 20:59:00 123 mm[Hg] Univer sity of pressure [facility] Diastolic blood 2021-07-11 20:59:00 69 mm[Hg] Unive rsity of pressure [facility] Heart rate 2021-07-11 20:59:00 70 /min [facility] Body temperature 2021-07-11 20:59:00 37.11 [place] [facility] Respiratory rate 2021-07-11 20:59:00 18 /min [facility] Body height 2021-07-11 20:59:00 154.9 cm [facility] Body weight 2021-07-11 20:59:00 81.421 kg [facility] BMI 2021-07-11 20:59:00 33.92 kg/m2 [facility] Systolic (mm Hg) 2020-01-09 19:09:00 Derrick rial [place] Diastolic (mm Hg) 2020-01-09 19:09:00 Mem orial [place] Heart Rate 2020-01-09 19:09:00 [facility] [place] Temperature Oral (F) 2020-01-09 19:09:00 98.8 F [facility] [place] Height 2020-01-09 19:09:00 154.94 cm [facility] [place] Weight 2020-01-09 19:09:00 [facility] [place] BMI Calculated 2020-01-09 19:09:00 Memori al [place] Systolic (mm Hg) 2020-01-04 15:21:00 Derrick rial [place] Diastolic (mm Hg) 2020-01-04 15:21:00 Mem orial [place] Heart Rate 2020-01-04 15:21:00 [facility] [place] Temperature Oral (F) 2020-01-04 15:21:00 98.9 F [facility] [place] Height 2020-01-04 15:21:00 154.94 cm [facility] [place] Weight 2020-01-04 15:21:00 [facility] [place] BMI Calculated 2020-01-04 15:21:00 Memori al [place] Systolic (mm Hg) 2019-11-17 21:26:00 Derrick rial [place] Diastolic (mm Hg) 2019-11-17 21:26:00 Mem orial [place] Heart Rate 2019-11-17 21:26:00 [facility] [place] Temperature Oral (F) 2019-11-17 21:26:00 98.4 F [facility] [place] Height 2019-11-17 21:26:00 154.94 cm [facility] [place] Weight 2019-11-17 21:26:00 [facility] [place] BMI Calculated 2019-11-17 21:26:00 Memori al [place] Temperature Oral (F) 2019-10-26 08:11:00 98.1 F [facility] [place] Heart Rate 2019-10-26 08:11:00 [facility] [place] Respitory Rate 2019-10-26 08:11:00 Memori al [place] Systolic (mm Hg) 2019-10-26 08:11:00 Derrick rial [place] Diastolic (mm Hg) 2019-10-26 08:11:00 Mem orial [place] Systolic (mm Hg) 2019-10-26 05:32:00 Derrick rial [place] Diastolic (mm Hg) 2019-10-26 05:32:00 Mem orial [place] Heart Rate 2019-10-26 05:32:00 [facility] [place] Respitory Rate 2019-10-26 05:32:00 Memori al [place] Temperature Oral (F) 2019-10-26 05:32:00 97.7 F [facility] [place] Height 2019-10-26 05:32:00 154.94 cm [facility] [place] BMI Calculated 2019-10-26 05:32:00 Memori al [place] Weight 2019-10-26 05:32:00 [facility] [place] Temperature Oral (F) 2019-05-10 08:58:00 97.9 F [facility] [place] Heart Rate 2019-05-10 08:58:00 [facility] [place] Respitory Rate 2019-05-10 08:58:00 Memori al [place] Systolic (mm Hg) 2019-05-10 08:58:00 Derrick rial [place] Diastolic (mm Hg) 2019-05-10 08:58:00 Mem [facility] [place] Temperature Oral (F) 2019-05-10 08:30:00 97.9 F [facility] [place] Heart Rate 2019-05-10 08:30:00 [facility] [place] Respitory Rate 2019-05-10 08:30:00 Memori al [place] Systolic (mm Hg) 2019-05-10 08:30:00 Derrick rial [place] Diastolic (mm Hg) 2019-05-10 08:30:00 Mem orial [place] Respitory Rate 2019-05-10 07:32:00 Memori al [place] Systolic (mm Hg) 2019-05-10 07:32:00 Derrick rial [place] Diastolic (mm Hg) 2019-05-10 07:32:00 Mem [facility]rial [place] Temperature Oral (F) 2019-05-10 07:32:00 97.8 F Darleen Cochran Heart Rate 2019-05-10 07:32:00 Darleen Cochran Weight 2019-05-10 06:38:00 Darleen Cochran BMI Calculated 2019-05-10 06:38:00 Veena Nichole Height 2019-05-10 06:38:00 154.94 cm Darleen Cochran Procedures Procedure Date / Time Performing Clinician Source Performed NON-STRESS TEST 2021-07-11 21:44:19 [facility] STERILIZATION CONSENT FORM 2021-07-11 05:01:00 Doctor Unassigned , [facility] [place] [facility] CONSENT/REFUSAL FOR 2021-07-03 05:01:00 Doctor Unassigned, [facility] DIAGNOSIS AND TREATMENT [place] [facility] Removal impacted cerumen 2020-01-09 19:55:00 Mem orial [place] using irrigation/lavage, unilateral [U] XRAY ANKLE MIN 3 VWS 2019-12-14 00:00:00 [facility] LEFT [id number] Physicians Strapping; ankle and/or 2019-11-17 21:30:00 Derrick Cochran foot Cholecystectomy 2012-11-08 06:00:00 [facility] Her rodarte Appendectomy 2008-11-08 06:00:00 [facility] Her rodarte Excision of fallopian tube 2008-11-08 06:00:00 M deuce Cochran and surgical removal of ectopic Reconstruction of anterior 2007-04-09 05:00:00 M emoriheidy Cochran cruciate ligament of knee joint Periacetabular osteotomy 1999-11-08 06:00:00 Mem orial [place] of pelvic bone Plan of Care Planned Activity Planned Date Details Comments Source Future Scheduled 2022-11-09 DTaP,Tdap,and Td Univers [facility] Test 00:00:00 Vaccines (2 - Td) Medical Br anch [code = DTaP,Tdap,and Td Vaccines (2 - Td)] Future Scheduled 2021-09-01 Screening for [facility] Test 00:00:00 malignant neoplasm [facility] of cervix (procedure) [code = 914311451] Future Scheduled 2000 SARS-CoV-2 [facility] Test 00:00:00 (COVID-19) Vaccine [facility] (1) [code = SARS-CoV-2 (COVID-19) Vaccine (1)] Future Scheduled 1996 Depression screening [facility] [place] Test 00:00:00 (procedure) [code = Medical Branch 224041258] Future Scheduled COVID-19 [facility] ([facility] [code = COVID-19 VACCINE (1)] Future Scheduled [facility] Test screening (procedure) [code = 096864729] Future Scheduled Screening for [facility] Test malignant neoplasm of cervix (procedure) [code = 729274904] Future Scheduled [facility]ENZA [facility]ACCINE [facility] [code = INFLUENZA VACCINE] Encounters Start End Encounter Admission Attending Care Care Encounter Source Date/Time Date/Time Type Type Clinicians Facility Department ID 2021-04-12 Outpatient [facility] [id number] [place] 16:52:00 [facility] 2021-04-12 [facility] [id number] [place] 15:53:50 [facility] 2021-04-03 [facility] [id number] [place] 14:36:13 [facility] 2021-07-11 2021-07-11 Routine Fish, Bessie [facility] [id number] Univers 15:40:45 16:51:37 Jonathan [id number] i ty of Visit [facility] [id number] [place] [facility] [id number] [facility] 134 Branch 2021-07-11 2021-07-11 Orders Doctor JAMES [id number] Univers 00:00:00 00:00:00 Only UnassignedDANNY [id number] ity of [place] [facility] [id number] [facility] 009 Branch 2021-07-10 2021-07-10 Erp Project Manager Ultrasound, Leonora [facility] 1.2 .840.114 [id number] Univers 15:19:41 15:49:41 Visit Estella Hoff SIGNAL MAINTAINER HELPER 350.1. [id number] ity of [facility] [id number] Rick as MATERNAL [id number] Med ical & CHILD [address] [place] [address] 2021-07-082021-07-08 Telephone Bessie Contreras [facility] [id number] Univers 00:00:00 00:00:00 Jonathan [id number] it y of [facility] [id number] [facility] [id number] [facility] 134 Branch 2021-07-03 2021-07-03 Orders Doctor AJMES [id number] Univers 00:00:00 00:00:00 Only Unassigned, DANNY [id number] ity of [place] [facility] [id number] [facility] 009 Branch 2021-04-12 2021-04-12 Office JACINTA Drew [facility] [id number] 15:53:40 17:30:31 Visit Ben YEAGER [id number] [facility] [id number] [place] 2 [id number] 1 2021-04-11 2021-04-11 Erp Project Manager Ultrasound, [facility] [id number] 13:55:45 14:40:45 Visit Ang-Mfm SIGNAL MAINTAINER HELPER [id number] [facility] [id number] MATERNAL [id number] & CHILD [address] [facility] 2021-03-24 2021-03-24 Nurse JAMES Valdivia [id number] 00:00:00 00:00:00 Triage Roxy DELGADO [id number] [facility] [id number] [id number] [id number] 2021-03-14 2021-03-14 Erp Project Manager Ultrasound, [facility] [id number] 13:58:58 15:13:58 Visit Ang-Mfm SIGNAL MAINTAINER HELPER [id number] [facility] [id number] MATERNAL [id number] & CHILD 369 [facility] 2021-02-15 2021-02-15 Erp Project Manager 2, Adc Lab [facility] 1.2.840.114 [id number] 14:54:15 15:09:15 Visit [place] [id number] [place] [id number] Professio [id number] [address] 2021-02-15 2021-02-15 Routine Fish, Bessie [facility] 1.2.840.114 [id number] 14:04:47 14:45:34 Rickey [id number] Visit [place] [id number] Professio [id number] [address] 2021-01-29 2021-01-29 Erp Project Manager Caden [facility] 1.2.840.114 [id number] 08:39:29 08:54:29 Visit Lab Main [place] [id number] [place] [id number] Professio [id number] [address] 2021-01-18 2021-01-18 Erp Project Manager Caden [facility] 1.2.840.114 [id number] 09:37:18 09:52:18 Visit Lab Main Rickey [id number] [place] [id number] Professio [id number] [address] 2021-01-18 2021-01-18 Orders Doctor JAMES 1.2.840.114 [id number] 00:00:00 00:00:00 Only Unassigned, DANNY [id number] [place] [facility] [id number] [id number] [id number] 2021-01-11 2021-01-11 Nurse Meri Collins 1.2.840.114 [id number] 00:00:00 00:00:00 Triage DANNY [id number] [facility] 4.2.7.2.686 [id number] [id number] 2020-12-27 2020-12-27 [facility] 1.2.840.114 [id number] 12:27:00 14:58:00 Christine Lang 350.1.13.10 [place] 4.2.7.2.686 [place] [id number] 2020-12-27 2020-12-27 Orders Doctor JAMES 1.2.840.114 [id number] 00:00:00 00:00:00 Only Unassigned, DANNY 350.1.13.10 [facility] 4.2.7.2.686 [id number] 2020-12-27 2020-12-27 Nurse JAMES Suarez 1.2.840.114 [id number] 00:00:00 00:00:00 Triage Marybeth Cartwright DANNY [id number] [facility] 4.2.7.2.686 [id number] 2020-11-27 2020-11-27 Erp Project Manager Caden, [facility] 1.2.840.114 [id number] 09:00:53 09:15:53 Visit [facility] [place] 350.1.13.10 [place] 4.2.7.2.686 Professio [id number] [address] 2020-11-27 2020-11-27 Letter Doctor JAMES 1.2.840.114 [id number] 00:00:00 00:00:00 (Out) Unassigned, DANNY 350.1.13.10 [place] [facility] 4.2.7.2.686 [id number] 2020-11-23 2020-11-23 Erp Project [facility] 1.2.840.114 [id number] 14:22:39 14:37:39 Visit Lab [facility] [place] 350.1.13.10 [place] 4.2.7.2.686 Professio [phone] [address] 2020-11-22 2020-11-22 Orders Doctor JAMES 1.2.840.114 [id number] 00:00:00 00:00:00 Only Unassigned, DANNY 350.1.13.10 [place] 4.2.7.2.686 [id number] [id number] 2020-01-09 2020-01-10 Outpatient nullFlavo [facility] 3 [id number] [facility] 19:15:00 05:59:59 r Medicine 04 molly Cochran 2020-01-09 2020-01-10 Outpatient nullFlavo [facility] 3 [id number] [facility] 19:15:00 05:59:59 r Medicine 04 molly Cocrhan 2020-01-09 2020-01-09 Outpatient [facility] [id number] 13:15:00 23:59:59 04 2020-01-09 2020-01-09 Outpatient [facility]IE MHIE [id number] [facility] 13:15:00 13:15:00 04 molly 2020-01-06 2020-01-06 AppointJACINTA [place] [id number] Univers 16:00:00 16:00:00 t; mary jane ODEN M.D. [place] Thomas ODEN M.D. [facility] 2020-01-04 2020-01-05 Outpatient nullFlavo [facility] 3 [id number] Memoria 15:15:00 05:59:59 r Medicine 03 l Cecile Cochran 2020-01-04 2020-01-05 Outpatient nullFlavo [facility] 3 [id number] Memoria 15:15:00 05:59:59 r Medicine 03 l Cecile Cochran 2020-01-04 2020-01-04 Outpatient [facility] [id number] 09:15:00 23:59:59 03 2020-01-04 2020-01-04 Ambulatory nullFlavo [facility] 3 [id number] Memoria 16:15:00 16:15:00 Pre-Reg r Medicine 02 l Cecile Cochran 2020-01-04 2020-01-04 Ambulatory nullFlavo [facility] 3 [id number] Memoria 16:15:00 16:15:00 Pre-Reg r Medicine 02 l Cecile Cochran 2020-01-04 2020-01-04 Outpatient MHIE MHIE [id number] Memoria 10:15:00 10:15:00 02 molly Cochran 2020-01-04 2020-01-04 Outpatient [facility] MHMG [id number] 10:15:00 10:15:00 02 2020-01-04 2020-01-04 Outpatient MHIE MHIE [id number] Memoria 09:15:00 09:15:00 03 molly Cochran 2019-12-21 2019-12-21 Ambulatory nullFlavo [facility] 3 [id number] Memoria 21:00:00 21:00:00 Pre-Reg r Medicine 01 l Cecile Cochran 2019-12-21 2019-12-21 Ambulatory nullFlavo [facility] 3 [id number] Memoria 21:00:00 21:00:00 Pre-Reg r Medicine 01 l Cecile Cochran 2019-12-21 2019-12-21 Outpatient MHIE MHIE [id number] Memoria 15:00:00 15:00:00 01 molly Cochran 2019-12-21 2019-12-21 Outpatient MHMG MHMG [id number] 15:00:00 15:00:00 01 2019-12-16 2019-12-16 Appointbee SHEA [facility] 6 [id number] Univers 13:30:00 13:30:00 t; Henrry ODEN [facility] [place] SHEA [place] Thomas ODEN M.D. [facility] 2019-11-29 2019-12-01 Phone nullFlavo [facility] [id number] Memoria 19:05:32 05:59:59 Message r Medicine 00 l Cecile Cochran 2019-11-29 2019-12-01 Phone nullFlavo [facility] [id number] Memoria 19:05:32 05:59:59 Message r Medicine 00 l Cecile Cochran 2019-11-29 2019-11-30 Outpatient [facility] MG [id number] 13:05:32 23:59:59 00 2019-11-28 2019-11-29 Between nullFlavo [facility] [id number] Memoria 19:09:25 19:09:25 Visit r Medicine 05 l Cecile Cochran 2019-11-28 2019-11-29 Between nullFlavo [facility] [id number] Memoria 19:09:25 19:09:25 Visit r Medicine 05 l Cecile Cochran 2019-11-28 2019-11-29 Outpatient [facility] MG [id number] 13:09:25 13:09:25 05 2019-11-26 2019-11-27 Outpt Diag nullFlavo [facility] [id number] Memoria 21:26:00 05:59:00 Services r Outpatient 00 l Imaging Dimas Huber 2019-11-26 2019-11-27 Outpt Diag nullFlavo [facility] [id number] Memoria 21:26:00 05:59:00 Services r Outpatient 00 l Imaging [place] Cecile 2019-11-26 2019-11-26 Outpatient [place], [id number] [id number] 15:26:00 23:59:00 Noor 00 2019-11-17 2019-11-18 Outpatient nullFlavo [facility] Sports 3 [id number] Memoria 21:30:00 05:59:59 r Medicine 00 l Cecile [place] 2019-11-17 2019-11-18 Outpatient nullFlavo [facility] 3 [id number] Memoria 21:30:00 05:59:59 r Medicine 00 l Cecile [place] 2019-11-17 2019-11-17 Outpatient [facility] MG [id number] 15:30:00 23:59:59 00 2019-11-17 2019-11-17 Outpatient MHIE MHIE [id number] Memoria 15:30:00 15:30:00 00 l Dimas 2019-10-26 2019-10-26 Emergency nullFlavo [facility] [id number] Memoria 05:19:50 08:17:00 r [place] 03 [facility] 2019-10-26 2019-10-26 Emergency nullFlavo [facility] [id number] Memoria 05:19:50 08:17:00 r [place] 03 [facility] 2019-10-25 2019-10-26 Outpatient [place], [id number] 23:19:50 02:17:00 [place] [id number] Geovani [id number] 2019-10-25 2019-10-25 Emergency E MHCY MHCY [id number] MHCY 23:19:00 23:19:00 2019-05-10 2019-05-10 Emergency nullFlavo [facility] [id number] Memoria 06:34:56 09:20:00 r [place] 02 [facility] 2019-05-10 2019-05-10 Emergency nullFlavo [facility] [id number] Memoria 06:34:56 09:20:00 r [place] 02 [facility] 2019-05-10 2019-05-10 Outpatient Kathe 9 [id number] [id number] 01:34:56 04:20:00 Lui 2019-05-10 2019-05-10 Emergency E MHKM MHKM [id number] Memoria 01:34:00 01:34:00 l [facility] Results Test Description Test Time Test Comments Results Result [facility] e Comments NON-STRESS 2021-07-11 Time Universi ty of TEST 21:46:18 [id number]. [facility] [place] [facility] miguel is reactive [place] and reassuring. Baseline 140, moderate variability, +accelerations , no decelerations. Irena is irritable.
--- NOTE | 2021-07-12 14:39 | EDPHYS ---
Physician Documentation [facility] Name: Gissell Serrano Age: 35 yrs Sex: Female : 1985 Arrival Date: 07/12/2021 Time: 14:28 Bed DX2 Private MD: ED Physician Ben Johnson HPI: 07/12 14:37 This 35 yrs old Female presents to ER via Unassigned with complaints of Knee kb Injury. 14:46 The patient presents with decreased range of motion, pain, that is acute, swelling, kb tenderness. The complaints affect the left knee. Context: resulted from "knee gave out when I stood up", Problem is a result from a previous injury: Yes. Onset: The symptoms/episode began/occurred just prior to arrival. Modifying factors: The symptoms are alleviated by nothing. the symptoms are aggravated by weight bearing. Associated signs and symptoms: Pertinent positives: swelling, Pertinent negatives calf tenderness, fever, nausea, numbness, rash, tingling, vomiting, warmth, weakness. Treatment prior to arrival includes: no previous treatment. Severity of symptoms: At their worst the symptoms were moderate, in the emergency department the symptoms are unchanged. The patient has not experienced similar symptoms in the past. The patient has not recently seen a physician. 14:48 Pt reports she stood up and her knee gave out. States this has happened multiple times kb in the past, this is the third time in the last 9 months. Pt went to ortho the last time this happened, an x-ray was done, but nothing else could be done at the time due to . Pt states she doesn't want an x-ray today. Pt educated on need for MRI. Pt states she is being induced on Thursday, but will call to make an appt with ortho again. Pt does not want anything put on knee at this time, states she has knee braces at home that she will put on when she gets there. ROS: 14:47 Constitutional: Negative for fever, chills, and weight loss. kb 14:47 MS/extremity: Positive for pain, swelling, tenderness, of the left knee. 14:47 All other systems are negative. Exam: 14:48 Constitutional: This is a well developed, well nourished patient who is awake, alert, kb and in no acute distress. Head/Face: Normocephalic, atraumatic. ENT: Moist Mucous membranes Respiratory: Respirations even and unlabored. No increased work of breathing, no retractions or nasal flaring. Skin: Warm, dry with normal turgor. Normal color. Neuro: Awake and alert, GCS 15, oriented to person, place, time, and situation. Moves all extremities. Normal gait. Psych: Awake, alert, with orientation to person, place and time. Behavior, mood, and affect are within normal limits. 14:48 Musculoskeletal/extremity: Extremities: grossly normal except: noted in the left knee: decreased ROM, pain, swelling, tenderness, ROM: limited active range of motion due to pain, in the left knee, Circulation is intact in all extremities. Sensation intact. Weight bearing: is unable to bear weight. Vital Signs: 14:29 BP 124 / 69; Pulse 89; Resp 16; Temp 98.0; Pulse Ox 100% on R/A; iw MDM: 14:37 Data reviewed: vital signs, nurses notes. Data interpreted: Pulse oximetry: on room air kb is 100 %. Interpretation: normal. Counseling: I had a detailed discussion with the patient and/or guardian regarding: the historical points, exam findings, and any diagnostic results supporting the discharge/admit diagnosis, the need for outpatient follow up, a orthopedic surgeon, to return to the emergency department if symptoms worsen or persist or if there are any questions or concerns that arise at home. 14:38 Patient medically screened. kb Administered Medications: 15:08 Drug: Tylenol 1000 mg Route: PO; iw Disposition Summary: 07/12/21 14:38 Discharge Ordered Location: Home kb Condition: Stable kb Diagnosis - Pain in left knee kb Followup: kb - With: Emergency Department - When: As needed - Reason: Worsening of condition Followup: kb - With: Private Physician - When: 2 - 3 days - Reason: Recheck today's complaints, Continuance of care, Re-evaluation by your physician Discharge Instructions: - Discharge Summary Sheet kb - Acute Knee Pain, Adult, [id number] kb Forms: - Medication Reconciliation Form kb - Thank You Letter kb - Antibiotic Education kb - Prescription Opioid Use kb Signatures: Maria Del Rosario Castillo, [employer] CARLYLE-Deanna Duran, RN RN iw
--- NOTE | 2021-07-12 14:39 | ER ---
Nurse's Notes [facility] Name: Gissell Serrano Age: 35 yrs Sex: Female : 1985 Arrival Date: 07/12/2021 Time: 14:28 Bed DX2 Private MD: Diagnosis: Pain in left knee Presentation: 07/12 14:30 Acuity: JOCELYNE 4 iw 14:53 Chief complaint: Patient states: was at [facility] left knee gave out, fell to her iw bottom , pt has hx of ACL surgery and her knee has given out a few times sine being , pt is 38 weeks . Coronavirus screen: At this time, the client does not indicate any symptoms associated with coronavirus-19. Ebola Screen: Patient negative for fever greater than or equal to 101.5 degrees Fahrenheit, and additional compatible Ebola Virus Disease symptoms Patient denies exposure to infectious person. Patient denies travel to an Ebola-affected area in the 21 days before illness onset. No symptoms or risks identified at this time. Initial Sepsis Screen: Does the patient meet any 2 criteria? No. Patient's initial sepsis screen is negative. Does the patient have a suspected source of infection? No. Patient's initial sepsis screen is negative. Risk Assessment: Do you want to hurt yourself or someone else? Patient reports no desire to harm self or others. Onset of symptoms was July 12, 2021. 14:53 Method Of Arrival: EMS: [facility] iw Vital Signs: 14:29 BP 124 / 69; Pulse 89; Resp 16; Temp 98.0; Pulse Ox 100% on R/A; iw ED Course: 14:28 Patient arrived in ED. iw 14:30 Triage completed. iw 14:37 Maria Del Rosario Castillo FNP-C [facility] kb 14:37 Ben Johnson MD is Attending Physician. kb 14:53 Deanna Ibarra, RN is Primary Nurse. iw Administered Medications: 15:08 Drug: Tylenol 1000 mg Route: PO; iw Outcome: 14:38 Discharge ordered by . kb 15:17 Patient left the ED. iw Signatures: Maria Del Rosario Castillo FNP-C FNP-Deanna Duran RN RN iw
[2021-07-12] MEDS ORDERED: ACETAMINOPHEN 500 MG TAB ONE (15:29)
[2021-07-12 15:43] VITALS: BP 124/69; TEMP 98; O2SAT 100
== END 2021-07-12 15:17 | disposition home or self-care (01) ==
LOC: ER 14:25
DX: O26.893 Other specified pregnancy related conditions, third trimester (principal); M25.562 Pain in left knee; Z3A.38 38 weeks gestation of pregnancy
CPT/HCPCS: 99283